=== PATIENT | male | born 1965 | race Asian ===

== ENCOUNTER 2016-08-28 01:58 | Inpatient (IN) | payer MEDICAID ==
[~2016-08-28] VITALS: Ht 170.2 cm; Wt 71.0 kg
[~2016-08-28 01:58] MED LIST: ASPI81TA2 PO; CARV3 PO; FURO40 PO; LISI2.5T2 PO; POTA-9 PO
[2016-08-28 02:55] LABS: BASOPHILS # (AUTO) 0.02 K/uL (0.00-0.20); BASOPHILS % (AUTO) 0.1 % (0.0-2.0); EOSINOPHILS % (AUTO) 0.03 % (1.0-6.0); HEMATOCRIT 42.8 % (41-53); HEMOGLOBIN 13.6 g/dL (13.5-17.5); LYMPHOCYTES # (AUTO) 0.6 K/uL (1.0-4.8); LYMPHOCYTES % (AUTO) 5.2 % (22.0-44.0); MEAN CORPUSCULAR HEMOGLOBIN 23.8 pg (26.0-34.0); MEAN CORPUSCULAR HGB CONC 31.8 G/dL (31.0-37.0); MEAN CORPUSCULAR VOLUME 75 fL (80-100); MONOCYTES # (AUTO) 0.9 K/uL (0.1-1.0); MONOCYTES % (AUTO) 7.7 % (2.0-9.0); NEUTROPHILS # (AUTO) 10.6 K/uL (1.8-7.7); PLATELET COUNT (AUTO) 214 K/uL (150-450); RED BLOOD CELL COUNT(AUTO) 5.71 MIL/uL (4.50-5.90); RED CELL DISTRIBUTION WIDTH 15.5 % (11.5-14.5); WHITE BLOOD COUNT (AUTO) 12.1 K/uL (4.5-11.0)
[2016-08-28 03:04] LABS: CALCIUM, TOTAL 9.4 mg/dL (8.8-10.5); CREATININE 3.81 mg/dL (0.60-1.30); POTASSIUM 4.1 mmol/L (3.5-5.1)
[2016-08-28 03:08] LABS: RBC MORPHOLOGY COMMENT ABNORMAL RBC MORPH
[2016-08-28 03:10] LABS: ALBUMIN 5.1 g/dL (3.4-5.0); BILIRUBIN,TOTAL 1.4 mg/dL (0.1-1.0); TOTAL PROTEIN, SERUM 8.9 g/dL (6.4-8.2)
[2016-08-28] MEDS ORDERED: SODIUM CHLORIDE 0.9% 500 ML IV ONE (03:30)
[2016-08-28] MEDS ORDERED: ASPIRIN 325 MG TABLET PO ONE (03:30)
[2016-08-28] MEDS ORDERED: ACETAMINOPHEN 325 MG TABLET PO PRN ×2 (03:30→10:00)
[2016-08-28] MEDS ORDERED: NITROGLYCERIN 2% (1 GM=INCH) PACKET TP ONE (03:30)
[2016-08-28] MEDS ORDERED: 0.9% SODIUM CHLORIDE 10 ML SYRINGE IVP PRN ×2 (03:30→10:00)
[2016-08-28] MEDS ORDERED: ONDANSETRON HCL 4 MG/2 ML VIAL IVP PRN ×2 (03:30→10:00)
[2016-08-28 08:15] LABS: APPEARANCE,URINE CLOUDY (CLEAR); GLUCOSE, URINE (UA) NEGATIVE (NEGATIVE); KETONES,URINE NEGATIVE (NEGATIVE); LEUKOCYTE ESTERASE ,URINE NEGATIVE (NEGATIVE); OCCULT BLOOD,URINE NEGATIVE (NEGATIVE); PROTEIN,URINE TRACE (NEGATIVE)
[2016-08-28 08:25] LABS: ADD UA MICROSCOPIC YES
[2016-08-28 08:33] VITALS: BP 105/60
[2016-08-28 08:51] LABS: CALCIUM OXALATE CRYSTALS,UR Few /LPF (None Seen); RBC,URINE 0-2 /HPF (0-2); WBC,URINE 0-2 /HPF (0-5)
[2016-08-28] MEDS ORDERED: MAGNESIUM HYDROXIDE SUSPENSION 30 ML UDCUP PO PRN (10:00)
[2016-08-28] MEDS ORDERED: OxyCODONE HCL/ACETAMINOPHEN 5-325 MG TABLET PO PRN (10:00)
[2016-08-28] MEDS ORDERED: POTASSIUM CHLORIDE 10 MEQ ER TABLET PO SCH (10:00)
[2016-08-28] MEDS: ASPIRIN 81 MG CHEWABLE TABLET PO SCH (10:00)
[2016-08-28 11:32] VITALS: BP 115/62
[2016-08-28] MEDS: CARVEDILOL 3.125 MG TABLET PO SCH ×2 (11:45→23:56)
[2016-08-28] MEDS: DOCUSATE SODIUM 100 MG CAPSULE PO SCH ×2 (11:45→23:55)
[2016-08-28 15:11] VITALS: BP 101/68
[2016-08-28] MEDS ORDERED: PNEUMOCOCCAL VACCINE POLYVALENT 0.5 ML VIAL [PPSV23] IM ONE (15:15)
[2016-08-28 19:54] VITALS: BP 117/68
[2016-08-28 23:59] VITALS: BP 100/54
[2016-08-29 03:03] LABS: APPEARANCE,URINE CLEAR (CLEAR); GLUCOSE, URINE (UA) NEGATIVE (NEGATIVE); KETONES,URINE NEGATIVE (NEGATIVE); LEUKOCYTE ESTERASE ,URINE NEGATIVE (NEGATIVE); OCCULT BLOOD,URINE NEGATIVE (NEGATIVE); PH,URINE 5.5 (5.0-8.0); PROTEIN,URINE NEGATIVE (NEGATIVE)
[2016-08-29 03:27] LABS: CALCIUM OXALATE CRYSTALS,UR Few /LPF (None Seen); RBC,URINE 0-2 /HPF (0-2); WBC,URINE 0-2 /HPF (0-5)
[2016-08-29 04:10] VITALS: BP 100/55
[2016-08-29 06:47] LABS: BASOPHILS % (AUTO) 0.3 % (0.0-2.0); EOSINOPHILS % (AUTO) 1.6 % (1.0-6.0); HEMATOCRIT 38.7 % (41-53); HEMOGLOBIN 12.2 g/dL (13.5-17.5); LYMPHOCYTES # (AUTO) 1.8 K/uL (1.0-4.8); LYMPHOCYTES % (AUTO) 19.5 % (22.0-44.0); MEAN CORPUSCULAR HEMOGLOBIN 23.7 pg (26.0-34.0); MEAN CORPUSCULAR HGB CONC 31.5 G/dL (31.0-37.0); MEAN CORPUSCULAR VOLUME 75 fL (80-100); MONOCYTES # (AUTO) 1.1 K/uL (0.1-1.0); MONOCYTES % (AUTO) 12.4 % (2.0-9.0); NEUTROPHILS # (AUTO) 6.1 K/uL (1.8-7.7); NEUTROPHILS % (AUTO) 66.2 % (40.0-70.0); PLATELET COUNT (AUTO) 189 K/uL (150-450); RED BLOOD CELL COUNT(AUTO) 5.15 MIL/uL (4.50-5.90); RED CELL DISTRIBUTION WIDTH 15.4 % (11.5-14.5); WHITE BLOOD COUNT (AUTO) 9.2 K/uL (4.5-11.0)
[2016-08-29 07:05] LABS: CALCIUM, TOTAL 8.6 mg/dL (8.8-10.5); CREATININE 1.35 mg/dL (0.60-1.30); MAGNESIUM 2.1 mg/dL (1.80-2.40); PHOSPHORUS 3.1 mg/dL (2.5-4.9); POTASSIUM 4.1 mmol/L (3.5-5.1)
[2016-08-29 07:16] VITALS: BP 103/57
[2016-08-29] MEDS: VITAMIN B COMP/VIT C/FOLIC ACID CAPSULE PO SCH (08:10)
[2016-08-29] MEDS: CARVEDILOL 3.125 MG TABLET PO SCH ×2 (08:10→20:40)
[2016-08-29] MEDS: DOCUSATE SODIUM 100 MG CAPSULE PO SCH ×2 (08:11→20:40)
[2016-08-29] MEDS: ASPIRIN 81 MG CHEWABLE TABLET PO SCH (08:11)
[2016-08-29] MEDS ORDERED: ASPIRIN 81 MG CHEWABLE TABLET PO SCH (09:00)
[2016-08-29 09:33] LABS: RBC MORPHOLOGY COMMENT ABNORMAL RBC MORPH
[2016-08-29] MEDS: PANTOPRAZOLE SODIUM 40 MG/VIAL IVP SCH (10:24)
[2016-08-29 11:11] VITALS: BP 103/56
[2016-08-29 15:57] VITALS: BP 112/64
[2016-08-29 19:43] VITALS: BP 101/60
[2016-08-29 23:41] VITALS: BP 100/57
[2016-08-30 04:30] VITALS: BP 108/63
[2016-08-30 07:17] LABS: ANION GAP 10 mmol/L (8-16); CALCIUM, TOTAL 8.7 mg/dL (8.8-10.5); CARBON DIOXIDE 26 mmol/L (22-29); CHLORIDE 100 mmol/L (98-107); CREATININE 1.05 mg/dL (0.60-1.30); GLOMERULAR FILTR. RATE CALC > 60 mL/min (>60); PHOSPHORUS 2.9 mg/dL (2.5-4.9); POTASSIUM 4.1 mmol/L (3.5-5.1); SODIUM SERUM 136 mmol/L (136-145); UREA NITROGEN, BLOOD 25 mg/dL (7-18)
[2016-08-30 07:39] VITALS: BP 110/64
[2016-08-30] MEDS: DOCUSATE SODIUM 100 MG CAPSULE PO SCH ×2 (08:11→20:12)
[2016-08-30] MEDS: PANTOPRAZOLE SODIUM 40 MG/VIAL IVP SCH (08:11)
[2016-08-30] MEDS: ASPIRIN 81 MG CHEWABLE TABLET PO SCH (08:12)
[2016-08-30] MEDS: VITAMIN B COMP/VIT C/FOLIC ACID CAPSULE PO SCH (08:13)
[2016-08-30] MEDS: OxyCODONE HCL/ACETAMINOPHEN 5-325 MG TABLET PO PRN (08:13)
[2016-08-30] MEDS: CARVEDILOL 3.125 MG TABLET PO SCH ×2 (08:46→20:12)
[2016-08-30 11:03] VITALS: BP 101/58
[2016-08-30 15:12] VITALS: BP 102/62
[2016-08-30 20:04] VITALS: BP 107/65
[2016-08-31] VITALS (19 sets, daily range): BP systolic 98–131; BP diastolic 50–81
[2016-08-31 07:13] LABS: ANION GAP 5 mmol/L (8-16); CALCIUM, TOTAL 8.4 mg/dL (8.8-10.5); CARBON DIOXIDE 30 mmol/L (22-29); CHLORIDE 101 mmol/L (98-107); CREATININE 1.03 mg/dL (0.60-1.30); GLOMERULAR FILTR. RATE CALC > 60 mL/min (>60); POTASSIUM 4.4 mmol/L (3.5-5.1); SODIUM SERUM 136 mmol/L (136-145); UREA NITROGEN, BLOOD 21 mg/dL (7-18)
[2016-08-31 07:16] LABS: BASOPHILS # (AUTO) 0.04 K/uL (0.00-0.20); BASOPHILS % (AUTO) 0.5 % (0.0-2.0); EOSINOPHILS % (AUTO) 2.64 % (1.0-6.0); HEMATOCRIT 37.5 % (41-53); HEMOGLOBIN 12.1 g/dL (13.5-17.5); LYMPHOCYTES # (AUTO) 1.4 K/uL (1.0-4.8); LYMPHOCYTES % (AUTO) 18.8 % (22.0-44.0); MEAN CORPUSCULAR HEMOGLOBIN 24.3 pg (26.0-34.0); MEAN CORPUSCULAR HGB CONC 32.2 G/dL (31.0-37.0); MEAN CORPUSCULAR VOLUME 75 fL (80-100); MONOCYTES # (AUTO) 0.9 K/uL (0.1-1.0); MONOCYTES % (AUTO) 12.2 % (2.0-9.0); NEUTROPHILS % (AUTO) 65.8 % (40.0-70.0); PLATELET COUNT (AUTO) 185 K/uL (150-450); RED BLOOD CELL COUNT(AUTO) 4.97 MIL/uL (4.50-5.90); RED CELL DISTRIBUTION WIDTH 15.2 % (11.5-14.5); WHITE BLOOD COUNT (AUTO) 7.5 K/uL (4.5-11.0)
[2016-08-31 07:28] LABS: INR 0.9 (0.9-1.1); PROTHROMBIN TIME 9.9 SEC (9.4-11.6)
[2016-08-31 08:20] LABS: RBC MORPHOLOGY COMMENT ABNORMAL RBC MORPH
[2016-08-31] MEDS: ASPIRIN 81 MG CHEWABLE TABLET PO SCH (08:57)
[2016-08-31] MEDS: VITAMIN B COMP/VIT C/FOLIC ACID CAPSULE PO SCH (08:58)
[2016-08-31] MEDS: CARVEDILOL 3.125 MG TABLET PO SCH ×2 (08:58→20:23)
[2016-08-31] MEDS: DOCUSATE SODIUM 100 MG CAPSULE PO SCH ×2 (08:58→20:23)
[2016-08-31] MEDS: PANTOPRAZOLE SODIUM 40 MG/VIAL IVP SCH (09:04)
[2016-08-31] MEDS ORDERED: PROPOFOL 1% 20 ML VIAL IVP ONE (12:00)
[2016-08-31] MEDS ORDERED: MIDAZOLAM HCL 2 MG/2 ML VIAL IVP ONE (12:00)
[2016-08-31] MEDS ORDERED: FentaNYL CITRATE-PF 100 MCG/2 ML VIAL IVP ONE (12:00)
[2016-08-31] MEDS ORDERED: KETAMINE HCL 50 MG/ML 10 ML VIAL IVP ONE (12:00)
[2016-08-31] MEDS ORDERED: SODIUM BICARBONATE 50 MEQ/50 ML VIAL ONE (13:00)
[2016-08-31] MEDS ORDERED: LIDOCAINE HCL/PF 1% 30 ML VIAL ONE ×2 (13:00→13:53)
[2016-08-31] MEDS ORDERED: IOHEXOL 300 MG/ML 50 ML VIAL ONE (13:18)
[2016-08-31] MEDS ORDERED: 0.9% SODIUM CHLORIDE 10 ML SYRINGE IVP ONE (13:24)
[2016-08-31] MEDS ORDERED: BUPIVACAINE LIPOSOME/PF 1.3%-13.3MG/ML SUSPENSION 10 ML VIAL INJ ONE (13:30)
[2016-08-31] MEDS ORDERED: LIDOCAINE 1% 30 ML/SOD BICARB 8.4% 4 ML SQ ONE (13:48)
[2016-08-31] MEDS ORDERED: LIDOCAINE HCL/PF 1% 30 ML VIAL INJ ONE (13:48)
[2016-08-31] MEDS ORDERED: LIDOCAINE HCL 1% 20 ML VIAL INJ ONE (13:48)
[2016-08-31] MEDS ORDERED: ACETAMINOPHEN 325 MG TABLET PO PRN (14:45)
[2016-08-31] MEDS ORDERED: HYDROmorphone 2 MG/ML SYRINGE IVP PRN (15:00)
[2016-08-31] MEDS ORDERED: MEPERIDINE-PF 25 MG/ML SYRINGE IVP PRN (15:00)
[2016-08-31] MEDS ORDERED: FentaNYL CITRATE-PF 100 MCG/2 ML VIAL IVP PRN (15:00)
[2016-08-31] MEDS ORDERED: BUPIVACAINE HCL/PF 0.25% 30 ML VIAL INJ ONE (16:48)
[2016-08-31] MEDS ORDERED: SODIUM CHLORIDE 0.9% 250 ML IV ONE (20:05)
[2016-08-31] MEDS: OXYGEN THERAPY IH SCH (20:23)
[2016-08-31] MEDS: CeFAZolin 1 GM/DEXTROSE 50 ML IV SCH (20:24)
[2016-09-01 00:08] VITALS: BP 112/72
[2016-09-01] MEDS: CeFAZolin 1 GM/DEXTROSE 50 ML IV SCH ×2 (01:46→08:18)
[2016-09-01 04:12] VITALS: BP 127/81
[2016-09-01] MEDS: OxyCODONE HCL/ACETAMINOPHEN 5-325 MG TABLET PO PRN ×3 (04:23→12:36)
[2016-09-01 04:27] VITALS: BP 127/75
[2016-09-01 06:40] LABS: ANION GAP 9 mmol/L (8-16); CALCIUM, TOTAL 8.2 mg/dL (8.8-10.5); CARBON DIOXIDE 27 mmol/L (22-29); CHLORIDE 100 mmol/L (98-107); CREATININE 1.13 mg/dL (0.60-1.30); GLOMERULAR FILTR. RATE CALC > 60 mL/min (>60); PHOSPHORUS 2.9 mg/dL (2.5-4.9); POTASSIUM 4.1 mmol/L (3.5-5.1); SODIUM SERUM 136 mmol/L (136-145); UREA NITROGEN, BLOOD 20 mg/dL (7-18)
[2016-09-01 06:42] LABS: BASOPHILS % (AUTO) 0.5 % (0.0-2.0); EOSINOPHILS % (AUTO) 3.2 % (1.0-6.0); HEMATOCRIT 37.3 % (41-53); HEMOGLOBIN 11.8 g/dL (13.5-17.5); LYMPHOCYTES # (AUTO) 1.4 K/uL (1.0-4.8); LYMPHOCYTES % (AUTO) 20.7 % (22.0-44.0); MEAN CORPUSCULAR HEMOGLOBIN 23.6 pg (26.0-34.0); MEAN CORPUSCULAR HGB CONC 31.7 G/dL (31.0-37.0); MEAN CORPUSCULAR VOLUME 74 fL (80-100); MONOCYTES # (AUTO) 0.9 K/uL (0.1-1.0); NEUTROPHILS # (AUTO) 4.2 K/uL (1.8-7.7); NEUTROPHILS % (AUTO) 62.6 % (40.0-70.0); PLATELET COUNT (AUTO) 178 K/uL (150-450); RED BLOOD CELL COUNT(AUTO) 5.01 MIL/uL (4.50-5.90); RED CELL DISTRIBUTION WIDTH 14.8 % (11.5-14.5); WHITE BLOOD COUNT (AUTO) 6.7 K/uL (4.5-11.0)
[2016-09-01 06:43] LABS: RBC MORPHOLOGY COMMENT ABNORMAL RBC MORPH
[2016-09-01 07:20] VITALS: BP 128/78
[2016-09-01] MEDS: OXYGEN THERAPY IH SCH (08:00)
[2016-09-01] MEDS: PANTOPRAZOLE SODIUM 40 MG/VIAL IVP SCH (08:18)
[2016-09-01] MEDS: DOCUSATE SODIUM 100 MG CAPSULE PO SCH (08:19)
[2016-09-01] MEDS: VITAMIN B COMP/VIT C/FOLIC ACID CAPSULE PO SCH (08:19)
[2016-09-01] MEDS: ASPIRIN 81 MG CHEWABLE TABLET PO SCH (08:19)
[2016-09-01] MEDS: CARVEDILOL 3.125 MG TABLET PO SCH (08:19)
[2016-09-01 11:05] VITALS: BP 110/71
== END 2016-09-01 15:10 | disposition home or self-care (01) | DRG 176 ==
LOC: EMS 01:59 → 5N 05:51
PROVIDERS: ADMIT Internal Medicine; ATTEND Internal Medicine
PROC: 3E0234Z Introduction of Serum, Toxoid and Vaccine into Muscle, Percutaneous Approach (ICD-10-PCS; 2016-08-30)
PROC: 0JH608Z Insertion of Defibrillator Generator into Chest Subcutaneous Tissue and Fascia, Open Approach (ICD-10-PCS; principal; 2016-08-31)
PROC: 0JH60PZ Insertion of Cardiac Rhythm Related Device into Chest Subcutaneous Tissue and Fascia, Open Approach (ICD-10-PCS; 2016-08-31)
DX: I42.9 Cardiomyopathy, unspecified (principal); N17.0 Acute kidney failure with tubular necrosis; I47.2 Ventricular tachycardia; I50.23 Acute on chronic systolic (congestive) heart failure; N18.5 Chronic kidney disease, stage 5; I13.2 Hypertensive heart and chronic kidney disease with heart failure and with stage 5 chronic kidney disease, or end stage renal disease; N17.9 Acute kidney failure, unspecified; R91.8 Other nonspecific abnormal finding of lung field; K76.9 Liver disease, unspecified; F15.10 Other stimulant abuse, uncomplicated; D64.9 Anemia, unspecified; F19.10 Other psychoactive substance abuse, uncomplicated; R07.89 Other chest pain; J44.9 Chronic obstructive pulmonary disease, unspecified; I25.10 Atherosclerotic heart disease of native coronary artery without angina pectoris; Z79.899 Other long term (current) drug therapy; Z87.01 Personal history of pneumonia (recurrent); Z87.891 Personal history of nicotine dependence; Z79.82 Long term (current) use of aspirin; Z87.898 Personal history of other specified conditions; Z71.51 Drug abuse counseling and surveillance of drug abuser; Z23 Encounter for immunization
CPT/HCPCS: 33249; 71020; 76000; 76770; 80307; 82570; 83735; 84100; 84300; 84540; 87081; 87086; 90471; 93005; 93306; 96360; 99285; C9113; J0690; J2250; J2704; J3010; J3490; J7040; J7050; Q9967

== ENCOUNTER 2017-05-28 18:17 | Emergency (ER) | payer MEDICAID, OTHER ==
[~2017-05-28] VITALS: Ht 170.2 cm; Wt 72.7 kg
[~2017-05-28 18:17] MED LIST changes: -ASPI81TA2 PO; +ASPI81TA39 PO; -FURO40 PO; -LISI2.5T2 PO; -POTA-9 PO
[2017-05-28 21:46] LABS: BASOPHILS % (AUTO) 1.3 % (0.0-2.0); EOSINOPHILS % (AUTO) 5.9 % (1.0-6.0); HEMATOCRIT 39.3 % (41-53); HEMOGLOBIN 12.8 g/dL (13.5-17.5); LYMPHOCYTES # (AUTO) 1.8 K/uL (1.0-4.8); LYMPHOCYTES % (AUTO) 27.1 % (22.0-44.0); MEAN CORPUSCULAR HEMOGLOBIN 24.3 pg (26.0-34.0); MEAN CORPUSCULAR HGB CONC 32.7 G/dL (31.0-37.0); MEAN CORPUSCULAR VOLUME 74 fL (80-100); MONOCYTES # (AUTO) 0.8 K/uL (0.1-1.0); MONOCYTES % (AUTO) 12.3 % (2.0-9.0); NEUTROPHILS # (AUTO) 3.6 K/uL (1.8-7.7); NEUTROPHILS % (AUTO) 53.4 % (40.0-70.0); PLATELET COUNT (AUTO) 236 K/uL (150-450); RED BLOOD CELL COUNT(AUTO) 5.28 MIL/uL (4.50-5.90); RED CELL DISTRIBUTION WIDTH 14.9 % (11.5-14.5)
[2017-05-28 22:04] LABS: CALCIUM, TOTAL 8.5 mg/dL (8.8-10.5); CREATININE 1.41 mg/dL (0.60-1.30); POTASSIUM 4.2 mmol/L (3.5-5.1)
[2017-05-28 22:10] LABS: ALBUMIN 3.5 g/dL (3.4-5.0); BILIRUBIN,TOTAL 0.6 mg/dL (0.1-1.0)
[2017-05-28] MEDS ORDERED: FUROSEMIDE 40 MG/4 ML VIAL IVP ONE (23:15)
[2017-05-29 00:52] VITALS: BP 109/79
== END 2017-05-29 00:54 | disposition home or self-care (01) ==
LOC: EMS 18:19
DX: I11.0 Hypertensive heart disease with heart failure (principal); I50.9 Heart failure, unspecified; Z87.891 Personal history of nicotine dependence
CPT/HCPCS: 36415; 71045; 80053; 83880; 84484; 85025; 93005; 96374; 99285; J1940

== ENCOUNTER 2018-01-10 20:18 | Emergency (ER) | payer OTHER ==
[~2018-01-10] VITALS: Ht 172.7 cm; Wt 70.5 kg
[~2018-01-10 20:18] MED LIST changes: +APIX5TAB PO; -ASPI81TA39 PO; +AUD NEB; +FURO-152 PO; +IPRNEB IH; +LEVO500T2 PO; +LISI10TA PO; +POTA-9 PO; +PRED10TA3 PO; +PRED20TA3 PO; +PRED5TAB PO
[2018-01-10] MEDS ORDERED: IPRATROPIUM BROMIDE 0.5 MG/2.5 ML NEB SOLUTION NEB ONE (20:45)
[2018-01-10] MEDS ORDERED: ALBUTEROL SULFATE 2.5 MG/0.5 ML NEB SOLUTION NEB ONE (20:45)
[2018-01-10 20:53] LABS: BASOPHILS % (AUTO) 1.2 % (0.0-2.0); HEMATOCRIT 38.9 % (41-53); HEMOGLOBIN 12.5 g/dL (13.5-17.5); LYMPHOCYTES # (AUTO) 1.4 K/uL (1.0-4.8); MEAN CORPUSCULAR HEMOGLOBIN 23.9 pg (26.0-34.0); MEAN CORPUSCULAR HGB CONC 32.2 G/dL (31.0-37.0); MEAN CORPUSCULAR VOLUME 74 fL (80-100); MONOCYTES # (AUTO) 0.6 K/uL (0.1-1.0); MONOCYTES % (AUTO) 10.7 % (2.0-9.0); NEUTROPHILS # (AUTO) 2.8 K/uL (1.8-7.7); NEUTROPHILS % (AUTO) 53.1 % (40.0-70.0); PLATELET COUNT (AUTO) 209 K/uL (150-450); RED BLOOD CELL COUNT(AUTO) 5.25 MIL/uL (4.50-5.90); RED CELL DISTRIBUTION WIDTH 15.3 % (11.5-14.5)
[2018-01-10 21:03] LABS: CREATININE 1.58 mg/dL (0.60-1.30); POTASSIUM 4.3 mmol/L (3.5-5.1)
[2018-01-10] MEDS ORDERED: 0.9% SODIUM CHLORIDE 5 ML NEB SOLUTION NEB ONE (21:06)
[2018-01-10 21:09] LABS: ALBUMIN 3.4 g/dL (3.4-5.0); BILIRUBIN,TOTAL 0.7 mg/dL (0.1-1.0); TOTAL PROTEIN, SERUM 6.8 g/dL (6.4-8.2)
[2018-01-10 21:40] LABS: PLATELET MORPHOLOGY COMMENT LARGE PLTS PRESENT
[2018-01-10] MEDS ORDERED: MethylPREDNISolone SOD SUCC 125 MG/2 ML VIAL IM ONE (22:00)
[2018-01-10] MEDS ORDERED: FUROSEMIDE 20 MG TABLET PO ONE (22:15)
[2018-01-10 23:07] VITALS: BP 119/69
== END 2018-01-10 23:11 | disposition home or self-care (01) ==
LOC: EMS 20:19
DX: I11.0 Hypertensive heart disease with heart failure (principal); I50.9 Heart failure, unspecified; J44.9 Chronic obstructive pulmonary disease, unspecified; D64.9 Anemia, unspecified; Z87.891 Personal history of nicotine dependence; Z95.0 Presence of cardiac pacemaker; Z79.01 Long term (current) use of anticoagulants; Z79.2 Long term (current) use of antibiotics; Z79.899 Other long term (current) drug therapy
CPT/HCPCS: 36415; 71045; 80053; 83880; 84484; 85025; 93005; 94640; 96372; 99285; J2930; J7613

== ENCOUNTER 2018-04-18 00:56 | Emergency (ER) | payer OTHER ==
[~2018-04-18] VITALS: Ht 172.7 cm; Wt 72.7 kg
[2018-04-18 01:36] LABS: BASOPHILS % (AUTO) 1.1 % (0.0-2.0); EOSINOPHILS % (AUTO) 6.7 % (1.0-6.0); HEMATOCRIT 39.9 % (41-53); HEMOGLOBIN 12.7 g/dL (13.5-17.5); LYMPHOCYTES # (AUTO) 1.5 K/uL (1.0-4.8); LYMPHOCYTES % (AUTO) 26.9 % (22.0-44.0); MEAN CORPUSCULAR HEMOGLOBIN 24.5 pg (26.0-34.0); MEAN CORPUSCULAR HGB CONC 31.8 G/dL (31.0-37.0); MEAN CORPUSCULAR VOLUME 77 fL (80-100); MONOCYTES # (AUTO) 0.7 K/uL (0.1-1.0); MONOCYTES % (AUTO) 11.9 % (2.0-9.0); NEUTROPHILS % (AUTO) 53.4 % (40.0-70.0); PLATELET COUNT (AUTO) 205 K/uL (150-450); RED BLOOD CELL COUNT(AUTO) 5.18 MIL/uL (4.50-5.90); RED CELL DISTRIBUTION WIDTH 16.9 % (11.5-14.5)
[2018-04-18 01:43] LABS: ANION GAP 7 mmol/L (8-16); CALCIUM, TOTAL 8.3 mg/dL (8.8-10.5); CARBON DIOXIDE 30 mmol/L (22-29); CHLORIDE 107 mmol/L (98-107); GLOMERULAR FILTR. RATE CALC > 60 mL/min (>60); GLUCOSE,RANDOM 99 mg/dL (70-110); POTASSIUM 4.6 mmol/L (3.5-5.1); SODIUM SERUM 144 mmol/L (136-145); UREA NITROGEN, BLOOD 18 mg/dL (7-18)
[2018-04-18 01:49] LABS: ALANINE AMINOTRANSFERASE 51 U/L (12-78); ALBUMIN 3.1 g/dL (3.4-5.0); ALKALINE PHOSPHATASE 83 U/L (46-116); ASPARTATE AMINOTRANSFERASE 37 U/L (15-37); BILIRUBIN,TOTAL 0.7 mg/dL (0.1-1.0); TOTAL PROTEIN, SERUM 6.3 g/dL (6.4-8.2)
[2018-04-18 02:06] LABS: B-TYPE NATRIURETIC PEPTIDE 663 pg/mL (0-100)
[2018-04-18] MEDS ORDERED: FUROSEMIDE 40 MG/4 ML VIAL IVP ONE (02:45)
[2018-04-18] MEDS ORDERED: IPRATROPIUM BROMIDE 0.5 MG/2.5 ML NEB SOLUTION NEB ONE (03:45)
[2018-04-18] MEDS ORDERED: ALBUTEROL SULFATE 2.5 MG/0.5 ML NEB SOLUTION NEB ONE (03:45)
[2018-04-18 04:29] LABS: PROTHROMBIN TIME 10.7 SEC (9.4-11.6)
[2018-04-18 04:30] LABS: AMPHET/METH SCREEN,URINE NEGATIVE (NEGATIVE); BARBITURATE SCREEN, URINE NEGATIVE (NEGATIVE); BENZODIAZEPINES SCREEN,URINE NEGATIVE (NEGATIVE); CANNABINOID SCREEN,URINE NEGATIVE (NEGATIVE); COCAINE SCREEN,URINE NEGATIVE (NEGATIVE); METHADONE SCREEN, URINE NEGATIVE (NEGATIVE); OPIATE SCREEN,URINE NEGATIVE (NEGATIVE); PHENCYCLIDINE SCREEN,URINE NEGATIVE (NEGATIVE)
[2018-04-18 04:54] VITALS: BP 115/79
== END 2018-04-18 05:17 | disposition home or self-care (01) ==
LOC: EMS 00:57
DX: I11.0 Hypertensive heart disease with heart failure (principal); I50.9 Heart failure, unspecified; J98.01 Acute bronchospasm; J44.9 Chronic obstructive pulmonary disease, unspecified; F19.90 Other psychoactive substance use, unspecified, uncomplicated; Z87.891 Personal history of nicotine dependence; Z95.0 Presence of cardiac pacemaker; Z79.899 Other long term (current) drug therapy
CPT/HCPCS: 36415; 71045; 80053; 80307; 83880; 84484; 85025; 85610; 85730; 93005; 94640; 96374; 99284; J1940

== ENCOUNTER 2018-05-08 18:43 | Emergency (ER) | payer OTHER ==
[~2018-05-08] VITALS: Ht 172.7 cm; Wt 68.2 kg
[2018-05-08 20:02] LABS: BASOPHILS % (AUTO) 0.7 % (0.0-2.0); HEMATOCRIT 42.9 % (41-53); HEMOGLOBIN 13.7 g/dL (13.5-17.5); LYMPHOCYTES % (AUTO) 14.2 % (22.0-44.0); MEAN CORPUSCULAR HEMOGLOBIN 24.6 pg (26.0-34.0); MEAN CORPUSCULAR VOLUME 77 fL (80-100); MONOCYTES # (AUTO) 1.1 K/uL (0.1-1.0); MONOCYTES % (AUTO) 14.8 % (2.0-9.0); NEUTROPHILS # (AUTO) 4.7 K/uL (1.8-7.7); NEUTROPHILS % (AUTO) 64.3 % (40.0-70.0); PLATELET COUNT (AUTO) 209 K/uL (150-450); RED BLOOD CELL COUNT(AUTO) 5.59 MIL/uL (4.50-5.90); RED CELL DISTRIBUTION WIDTH 16.9 % (11.5-14.5)
[2018-05-08 20:14] LABS: ANION GAP 9 mmol/L (8-16); CALCIUM, TOTAL 8.4 mg/dL (8.8-10.5); CARBON DIOXIDE 24 mmol/L (22-29); CHLORIDE 106 mmol/L (98-107); CREATININE 1.07 mg/dL (0.60-1.30); GLOMERULAR FILTR. RATE CALC > 60 mL/min (>60); GLUCOSE,RANDOM 89 mg/dL (70-110); POTASSIUM 3.6 mmol/L (3.5-5.1); SODIUM SERUM 139 mmol/L (136-145); UREA NITROGEN, BLOOD 14 mg/dL (7-18)
[2018-05-08 20:41] LABS: INR 1.1 (0.9-1.1); PROTHROMBIN TIME 11.8 SEC (9.4-11.6)
[2018-05-08 20:42] LABS: B-TYPE NATRIURETIC PEPTIDE 994 pg/mL (0-100)
[2018-05-08 20:44] LABS: ALANINE AMINOTRANSFERASE 708 U/L (12-78); ALBUMIN 2.8 g/dL (3.4-5.0); ALKALINE PHOSPHATASE 118 U/L (46-116); ASPARTATE AMINOTRANSFERASE 299 U/L (15-37); BILIRUBIN,TOTAL 0.9 mg/dL (0.1-1.0); CREATINE KINASE, TOTAL ONLY 142 U/L (39-308); TOTAL PROTEIN, SERUM 5.8 g/dL (6.4-8.2)
[2018-05-08] MEDS ORDERED: IPRATROPIUM BROMIDE 0.5 MG/2.5 ML NEB SOLUTION NEB ONE (21:00)
[2018-05-08] MEDS ORDERED: MethylPREDNISolone SOD SUCC 125 MG/2 ML VIAL IVP ONE (21:00)
[2018-05-08] MEDS ORDERED: FUROSEMIDE 40 MG/4 ML VIAL IVP ONE (21:00)
[2018-05-08] MEDS ORDERED: ALBUTEROL SULFATE 5 MG/ML 20 ML NEB SOLN [BULK] NEB ONE (21:00)
[2018-05-08] MEDS ORDERED: 0.9% SODIUM CHLORIDE 5 ML NEB SOLUTION NEB ONE (21:10)
[2018-05-08 23:22] VITALS: BP 144/85
== END 2018-05-08 23:44 | disposition home or self-care (01) ==
LOC: EMS 18:45
DX: J44.9 Chronic obstructive pulmonary disease, unspecified (principal); K70.10 Alcoholic hepatitis without ascites; I11.0 Hypertensive heart disease with heart failure; I50.9 Heart failure, unspecified; F15.10 Other stimulant abuse, uncomplicated; F10.10 Alcohol abuse, uncomplicated; Z95.0 Presence of cardiac pacemaker; Z79.899 Other long term (current) drug therapy; Z87.891 Personal history of nicotine dependence
CPT/HCPCS: 36415; 71045; 80053; 82550; 83880; 84484; 85025; 85610; 85730; 93005; 94644; 96374; 96375; 99285; J1940; J2930

== ENCOUNTER 2018-05-21 09:45 | Inpatient (IN) | payer OTHER ==
[~2018-05-21] VITALS: Ht 170.2 cm; Wt 73.7 kg
[2018-05-21 10:44] LABS: BASOPHILS % (AUTO) 1.3 % (0.0-2.0); EOSINOPHILS % (AUTO) 2.8 % (1.0-6.0); HEMATOCRIT 41.7 % (41-53); HEMOGLOBIN 13.6 g/dL (13.5-17.5); LYMPHOCYTES # (AUTO) 1.4 K/uL (1.0-4.8); LYMPHOCYTES % (AUTO) 21.5 % (22.0-44.0); MEAN CORPUSCULAR HEMOGLOBIN 25.1 pg (26.0-34.0); MEAN CORPUSCULAR HGB CONC 32.6 G/dL (31.0-37.0); MEAN CORPUSCULAR VOLUME 77 fL (80-100); MONOCYTES # (AUTO) 0.6 K/uL (0.1-1.0); MONOCYTES % (AUTO) 8.7 % (2.0-9.0); NEUTROPHILS # (AUTO) 4.3 K/uL (1.8-7.7); NEUTROPHILS % (AUTO) 65.7 % (40.0-70.0); PLATELET COUNT (AUTO) 212 K/uL (150-450); RED BLOOD CELL COUNT(AUTO) 5.42 MIL/uL (4.50-5.90); RED CELL DISTRIBUTION WIDTH 16.5 % (11.5-14.5)
[2018-05-21 10:47] LABS: CALCIUM, TOTAL 8.9 mg/dL (8.8-10.5); CREATININE 1.32 mg/dL (0.60-1.30); INR 1.1 (0.9-1.1); PROTHROMBIN TIME 11.4 SEC (9.4-11.6)
[2018-05-21 11:10] LABS: BILIRUBIN,TOTAL 1.1 mg/dL (0.1-1.0); TOTAL PROTEIN, SERUM 6.2 g/dL (6.4-8.2)
[2018-05-21 11:34] LABS: APPEARANCE,URINE CLEAR (CLEAR); BILIRUBIN,URINE NEGATIVE (NEGATIVE); GLUCOSE, URINE (UA) NEGATIVE (NEGATIVE); KETONES,URINE NEGATIVE (NEGATIVE); LEUKOCYTE ESTERASE ,URINE NEGATIVE (NEGATIVE); NITRATE,URINE NEGATIVE (NEGATIVE); OCCULT BLOOD,URINE NEGATIVE (NEGATIVE)
[2018-05-21] MEDS ORDERED: FUROSEMIDE 40 MG/4 ML VIAL IVP ONE (11:45)
[2018-05-21] MEDS ORDERED: NITROGLYCERIN 2% (1 GM=INCH) PACKET TP ONE (11:45)
[2018-05-21] MEDS ORDERED: ASPIRIN 325 MG EC TABLET PO ONE (11:45)
[2018-05-21 12:02] LABS: PROTEIN,URINE NEGATIVE (NEGATIVE)
[2018-05-21 12:05] LABS: AMPHET/METH SCREEN,URINE POSITIVE (NEGATIVE); BARBITURATE SCREEN, URINE NEGATIVE (NEGATIVE); BENZODIAZEPINES SCREEN,URINE NEGATIVE (NEGATIVE); CANNABINOID SCREEN,URINE NEGATIVE (NEGATIVE); COCAINE SCREEN,URINE NEGATIVE (NEGATIVE); METHADONE SCREEN, URINE NEGATIVE (NEGATIVE); OPIATE SCREEN,URINE NEGATIVE (NEGATIVE); PHENCYCLIDINE SCREEN,URINE NEGATIVE (NEGATIVE)
[2018-05-21] MEDS ORDERED: ACETAMINOPHEN 325 MG TABLET PO PRN ×2 (13:45→20:45)
[2018-05-21] MEDS ORDERED: 0.9% SODIUM CHLORIDE 10 ML SYRINGE IVP PRN (13:45)
[2018-05-21 19:10] VITALS: BP 110/74
[2018-05-21 19:35] VITALS: BP 121/90
[2018-05-21] MEDS ORDERED: ONDANSETRON HCL 4 MG/2 ML VIAL IVP PRN (20:45)
[2018-05-21] MEDS: POTASSIUM CHLORIDE 10% 40 MEQ/30 ML LIQUID UDCUP PO SCH (22:08)
[2018-05-21] MEDS: ENOXAPARIN SODIUM 40 MG/0.4 ML PF SYRINGE SQ SCH (22:09)
[2018-05-21] MEDS: FUROSEMIDE 40 MG/4 ML VIAL IVP SCH (22:10)
[2018-05-21 22:34] LABS: BASOPHILS % (AUTO) 0.8 % (0.0-2.0); HEMATOCRIT 40.1 % (41-53); LYMPHOCYTES # (AUTO) 1.9 K/uL (1.0-4.8); LYMPHOCYTES % (AUTO) 29.4 % (22.0-44.0); MEAN CORPUSCULAR HEMOGLOBIN 24.8 pg (26.0-34.0); MEAN CORPUSCULAR HGB CONC 32.5 G/dL (31.0-37.0); MEAN CORPUSCULAR VOLUME 76 fL (80-100); MONOCYTES # (AUTO) 0.8 K/uL (0.1-1.0); MONOCYTES % (AUTO) 11.6 % (2.0-9.0); NEUTROPHILS # (AUTO) 3.6 K/uL (1.8-7.7); NEUTROPHILS % (AUTO) 56.2 % (40.0-70.0); PLATELET COUNT (AUTO) 219 K/uL (150-450); RED BLOOD CELL COUNT(AUTO) 5.25 MIL/uL (4.50-5.90); RED CELL DISTRIBUTION WIDTH 16.2 % (11.5-14.5)
[2018-05-21 22:43] LABS: INR 1.1 (0.9-1.1); PROTHROMBIN TIME 11.7 SEC (9.4-11.6)
[2018-05-21 22:52] LABS: PLATELET MORPHOLOGY COMMENT NORMAL
[2018-05-21 23:12] LABS: ALBUMIN 2.7 g/dL (3.4-5.0); BILIRUBIN,TOTAL 1.1 mg/dL (0.1-1.0); CALCIUM, TOTAL 8.5 mg/dL (8.8-10.5); CREATININE 1.53 mg/dL (0.60-1.30); POTASSIUM 3.9 mmol/L (3.5-5.1); TOTAL PROTEIN, SERUM 5.7 g/dL (6.4-8.2)
[2018-05-21 23:42] VITALS: BP 122/79
[2018-05-22] MEDS: ALBUTEROL SULFATE 2.5 MG/0.5 ML NEB SOLUTION NEB SCH ×4 (02:09→20:04)
[2018-05-22] MEDS: IPRATROPIUM BROMIDE 0.5 MG/2.5 ML NEB SOLUTION NEB SCH ×4 (02:09→20:04)
[2018-05-22 04:57] VITALS: BP 112/72
[2018-05-22 07:46] LABS: BASOPHILS % (AUTO) 1.1 % (0.0-2.0); EOSINOPHILS % (AUTO) 2.6 % (1.0-6.0); HEMATOCRIT 40.3 % (41-53); LYMPHOCYTES # (AUTO) 1.9 K/uL (1.0-4.8); LYMPHOCYTES % (AUTO) 30.9 % (22.0-44.0); MEAN CORPUSCULAR HEMOGLOBIN 24.6 pg (26.0-34.0); MEAN CORPUSCULAR HGB CONC 32.2 G/dL (31.0-37.0); MEAN CORPUSCULAR VOLUME 77 fL (80-100); MONOCYTES # (AUTO) 0.6 K/uL (0.1-1.0); MONOCYTES % (AUTO) 9.3 % (2.0-9.0); NEUTROPHILS # (AUTO) 3.5 K/uL (1.8-7.7); NEUTROPHILS % (AUTO) 56.1 % (40.0-70.0); PLATELET COUNT (AUTO) 224 K/uL (150-450); RED BLOOD CELL COUNT(AUTO) 5.27 MIL/uL (4.50-5.90); RED CELL DISTRIBUTION WIDTH 16.1 % (11.5-14.5)
[2018-05-22 07:52] LABS: ALBUMIN 2.7 g/dL (3.4-5.0); CALCIUM, TOTAL 8.3 mg/dL (8.8-10.5); CREATININE 1.6 mg/dL (0.60-1.30); POTASSIUM 3.6 mmol/L (3.5-5.1); TOTAL PROTEIN, SERUM 5.6 g/dL (6.4-8.2)
[2018-05-22 08:27] VITALS: BP 113/80
[2018-05-22] MEDS: POTASSIUM CHLORIDE 10% 40 MEQ/30 ML LIQUID UDCUP PO SCH (08:56)
[2018-05-22] MEDS: ENOXAPARIN SODIUM 40 MG/0.4 ML PF SYRINGE SQ SCH (08:56)
[2018-05-22] MEDS: FUROSEMIDE 40 MG/4 ML VIAL IVP SCH ×2 (08:56→21:33)
[2018-05-22 11:15] VITALS: BP 125/80
[2018-05-22 16:39] VITALS: BP 109/73
[2018-05-22 19:40] VITALS: BP 110/77
[2018-05-23 00:01] VITALS: BP 112/72
[2018-05-23] MEDS: ALBUTEROL SULFATE 2.5 MG/0.5 ML NEB SOLUTION NEB SCH ×3 (02:14→14:00)
[2018-05-23] MEDS: IPRATROPIUM BROMIDE 0.5 MG/2.5 ML NEB SOLUTION NEB SCH ×3 (02:14→14:00)
[2018-05-23 05:05] VITALS: BP 102/75
[2018-05-23 07:18] VITALS: BP 112/73
[2018-05-23] MEDS: POTASSIUM CHLORIDE 10% 40 MEQ/30 ML LIQUID UDCUP PO SCH (08:13)
[2018-05-23] MEDS: FUROSEMIDE 40 MG/4 ML VIAL IVP SCH (08:13)
[2018-05-23] MEDS: ENOXAPARIN SODIUM 40 MG/0.4 ML PF SYRINGE SQ SCH (08:14)
[2018-05-23 10:55] VITALS: BP 114/71
[2018-05-23] MEDS ORDERED: FURO40 PO (11:25)
[2018-05-23] MEDS ORDERED: KDUR20 PO (11:26)
[2018-05-23] MEDS ORDERED: IPRAHFA IH (11:27)
== END 2018-05-23 14:20 | disposition home or self-care (01) | DRG 194 ==
LOC: EMS 09:46 → 5S 17:03 → 5N 18:39
PROVIDERS: ADMIT Internal Medicine; ATTEND Internal Medicine
PROC: 3E0234Z Introduction of Serum, Toxoid and Vaccine into Muscle, Percutaneous Approach (ICD-10-PCS; principal; 2018-05-23)
DX: I11.0 Hypertensive heart disease with heart failure (principal); N17.9 Acute kidney failure, unspecified; J81.1 Chronic pulmonary edema; I45.81 Long QT syndrome; I50.23 Acute on chronic systolic (congestive) heart failure; I42.9 Cardiomyopathy, unspecified; F15.10 Other stimulant abuse, uncomplicated; F17.200 Nicotine dependence, unspecified, uncomplicated; J44.9 Chronic obstructive pulmonary disease, unspecified; T50.2X5A Adverse effect of carbonic-anhydrase inhibitors, benzothiadiazides and other diuretics, initial encounter; Z23 Encounter for immunization; Z95.810 Presence of automatic (implantable) cardiac defibrillator; Y92.89 Other specified places as the place of occurrence of the external cause; Z87.01 Personal history of pneumonia (recurrent)
CPT/HCPCS: 90686; 93005; 94640; 96374; G0378; G0480; J1650; J1940

== ENCOUNTER 2018-05-24 14:37 | Emergency (ER) | payer OTHER ==
[~2018-05-24] VITALS: Ht 165.1 cm; Wt 63.6 kg
[~2018-05-24 14:37] MED LIST changes: -APIX5TAB PO; -AUD NEB; -CARV3 PO; -FURO-152 PO; +FURO40 PO; +IPRAHFA IH; -IPRNEB IH; +KDUR20 PO; -LEVO500T2 PO; -LISI10TA PO; -POTA-9 PO; -PRED10TA3 PO; -PRED20TA3 PO; -PRED5TAB PO
[2018-05-24 15:40] LABS: BASOPHILS % (AUTO) 2.2 % (0.0-2.0); EOSINOPHILS % (AUTO) 2.3 % (1.0-6.0); HEMOGLOBIN 15.6 g/dL (13.5-17.5); LYMPHOCYTES # (AUTO) 1.2 K/uL (1.0-4.8); MEAN CORPUSCULAR HGB CONC 32.5 G/dL (31.0-37.0); MEAN CORPUSCULAR VOLUME 77 fL (80-100); MONOCYTES # (AUTO) 0.7 K/uL (0.1-1.0); MONOCYTES % (AUTO) 10.9 % (2.0-9.0); NEUTROPHILS # (AUTO) 4.1 K/uL (1.8-7.7); NEUTROPHILS % (AUTO) 65.6 % (40.0-70.0); PLATELET COUNT (AUTO) 242 K/uL (150-450); RED BLOOD CELL COUNT(AUTO) 6.25 MIL/uL (4.50-5.90)
[2018-05-24 16:04] LABS: CALCIUM, TOTAL 9.2 mg/dL (8.8-10.5); CREATININE 1.27 mg/dL (0.60-1.30); POTASSIUM 4.6 mmol/L (3.5-5.1)
[2018-05-24 16:12] LABS: PROTHROMBIN TIME 10.2 SEC (9.4-11.6)
[2018-05-24 16:12] LABS: APPEARANCE,URINE CLEAR (CLEAR); BILIRUBIN,URINE NEGATIVE (NEGATIVE); GLUCOSE, URINE (UA) NEGATIVE (NEGATIVE); KETONES,URINE NEGATIVE (NEGATIVE); LEUKOCYTE ESTERASE ,URINE NEGATIVE (NEGATIVE); NITRATE,URINE NEGATIVE (NEGATIVE); OCCULT BLOOD,URINE NEGATIVE (NEGATIVE); PROTEIN,URINE NEGATIVE (NEGATIVE); UROBILINOGEN,URINE 0.2 mg/dL (<=1.0)
[2018-05-24 16:13] LABS: AMPHET/METH SCREEN,URINE NEGATIVE (NEGATIVE); BARBITURATE SCREEN, URINE NEGATIVE (NEGATIVE); BENZODIAZEPINES SCREEN,URINE NEGATIVE (NEGATIVE); CANNABINOID SCREEN,URINE NEGATIVE (NEGATIVE); COCAINE SCREEN,URINE NEGATIVE (NEGATIVE); METHADONE SCREEN, URINE NEGATIVE (NEGATIVE); OPIATE SCREEN,URINE NEGATIVE (NEGATIVE); PHENCYCLIDINE SCREEN,URINE NEGATIVE (NEGATIVE)
[2018-05-24 16:31] LABS: ALBUMIN 3.4 g/dL (3.4-5.0); BILIRUBIN,TOTAL 0.8 mg/dL (0.1-1.0); TOTAL PROTEIN, SERUM 7.5 g/dL (6.4-8.2)
[2018-05-24] MEDS ORDERED: FUROSEMIDE 40 MG/4 ML VIAL IVP ONE (19:30)
[2018-05-24] MEDS ORDERED: ALBUTEROL SULFATE 2.5 MG/0.5 ML NEB SOLUTION NEB ONE (19:30)
[2018-05-24] MEDS ORDERED: MethylPREDNISolone SOD SUCC 125 MG/2 ML VIAL IVP ONE (19:30)
[2018-05-24] MEDS ORDERED: IPRATROPIUM BROMIDE 0.5 MG/2.5 ML NEB SOLUTION NEB ONE (19:30)
[2018-05-24 22:05] VITALS: BP 110/70
== END 2018-05-24 22:12 | disposition home or self-care (01) ==
LOC: EMS 14:38
DX: J44.9 Chronic obstructive pulmonary disease, unspecified (principal); I11.0 Hypertensive heart disease with heart failure; I50.9 Heart failure, unspecified; Z95.0 Presence of cardiac pacemaker; Z87.891 Personal history of nicotine dependence; Z79.899 Other long term (current) drug therapy
CPT/HCPCS: 36415; 71045; 80053; 80307; 81003; 82550; 83880; 84484; 85025; 85610; 85730; 93005; 94640; 96374; 96375; 99285; J1940; J2930

== ENCOUNTER 2018-06-02 01:47 | Inpatient (IN) | payer OTHER ==
[~2018-06-02] VITALS: Ht 167.6 cm; Wt 67.3 kg
[2018-06-02] MEDS ORDERED: METH4TAB PO (01:54)
[2018-06-02 03:21] LABS: BASOPHILS % (AUTO) 0.2 % (0.0-2.0); EOSINOPHILS % (AUTO) 0.1 % (1.0-6.0); HEMATOCRIT 42.5 % (41-53); LYMPHOCYTES # (AUTO) 1.6 K/uL (1.0-4.8); LYMPHOCYTES % (AUTO) 14.9 % (22.0-44.0); MEAN CORPUSCULAR HEMOGLOBIN 25.3 pg (26.0-34.0); MEAN CORPUSCULAR VOLUME 77 fL (80-100); MONOCYTES # (AUTO) 0.9 K/uL (0.1-1.0); MONOCYTES % (AUTO) 8.9 % (2.0-9.0); NEUTROPHILS % (AUTO) 75.9 % (40.0-70.0); PLATELET COUNT (AUTO) 232 K/uL (150-450); RED BLOOD CELL COUNT(AUTO) 5.55 MIL/uL (4.50-5.90)
[2018-06-02 03:51] LABS: CALCIUM, TOTAL 8.8 mg/dL (8.8-10.5); CREATININE 1.47 mg/dL (0.60-1.30); POTASSIUM 4.2 mmol/L (3.5-5.1)
[2018-06-02 03:57] LABS: ALBUMIN 3.8 g/dL (3.4-5.0); BILIRUBIN,TOTAL 1.1 mg/dL (0.1-1.0); TOTAL PROTEIN, SERUM 7.4 g/dL (6.4-8.2)
[2018-06-02] MEDS ORDERED: BUMETANIDE 0.25 MG/ML 4 ML VIAL IVP ONE (04:15)
[2018-06-02 06:16] LABS: AMPHET/METH SCREEN,URINE POSITIVE (NEGATIVE); BARBITURATE SCREEN, URINE NEGATIVE (NEGATIVE); BENZODIAZEPINES SCREEN,URINE NEGATIVE (NEGATIVE); CANNABINOID SCREEN,URINE NEGATIVE (NEGATIVE); COCAINE SCREEN,URINE NEGATIVE (NEGATIVE); METHADONE SCREEN, URINE NEGATIVE (NEGATIVE); OPIATE SCREEN,URINE NEGATIVE (NEGATIVE)
[2018-06-02 06:28] LABS: PHENCYCLIDINE SCREEN,URINE NEGATIVE (NEGATIVE)
[2018-06-02 06:53] VITALS: BP 124/94
[2018-06-02 08:10] VITALS: BP 121/87
[2018-06-02] MEDS ORDERED: ENOXAPARIN SODIUM 80 MG/0.8 ML PF SYRINGE SQ SCH (09:00)
[2018-06-02 10:57] VITALS: BP 104/77
[2018-06-02] MEDS ORDERED: BISACODYL 10 MG RECTAL RECTAL SUPPOSITORY PR PRN (11:00)
[2018-06-02 15:46] VITALS: BP 115/76
[2018-06-02 19:34] VITALS: BP 135/95
[2018-06-02] MEDS: DOCUSATE SODIUM 100 MG CAPSULE PO SCH (20:56)
[2018-06-02] MEDS: ACETAMINOPHEN 325 MG TABLET PO PRN (20:56)
[2018-06-02] MEDS ORDERED: HEPARIN SODIUM,PORCINE 5,000 UNITS/ML VIAL SQ SCH (21:00)
[2018-06-02] MEDS ORDERED: 0.9% SODIUM CHLORIDE 5 ML NEB SOLUTION NEB ONE (21:06)
[2018-06-02] MEDS: ALBUTEROL SULFATE 2.5 MG/0.5 ML NEB SOLUTION NEB PRN (21:09)
[2018-06-03 00:28] VITALS: BP 130/74
[2018-06-03 05:40] VITALS: BP 117/87
[2018-06-03 06:31] LABS: BASOPHILS % (AUTO) 0.5 % (0.0-2.0); EOSINOPHILS % (AUTO) 1.3 % (1.0-6.0); HEMATOCRIT 40.3 % (41-53); HEMOGLOBIN 13.4 g/dL (13.5-17.5); LYMPHOCYTES # (AUTO) 1.6 K/uL (1.0-4.8); LYMPHOCYTES % (AUTO) 19.2 % (22.0-44.0); MEAN CORPUSCULAR HEMOGLOBIN 25.3 pg (26.0-34.0); MEAN CORPUSCULAR HGB CONC 33.2 G/dL (31.0-37.0); MEAN CORPUSCULAR VOLUME 76 fL (80-100); MONOCYTES # (AUTO) 1.1 K/uL (0.1-1.0); MONOCYTES % (AUTO) 12.8 % (2.0-9.0); NEUTROPHILS # (AUTO) 5.6 K/uL (1.8-7.7); NEUTROPHILS % (AUTO) 66.2 % (40.0-70.0); PLATELET COUNT (AUTO) 206 K/uL (150-450); RED BLOOD CELL COUNT(AUTO) 5.28 MIL/uL (4.50-5.90); RED CELL DISTRIBUTION WIDTH 16.2 % (11.5-14.5)
[2018-06-03 06:53] LABS: ALBUMIN 2.8 g/dL (3.4-5.0); CALCIUM, TOTAL 8.3 mg/dL (8.8-10.5); CREATININE 1.49 mg/dL (0.60-1.30); POTASSIUM 3.2 mmol/L (3.5-5.1)
[2018-06-03 07:12] VITALS: BP 117/77
[2018-06-03] MEDS: DOCUSATE SODIUM 100 MG CAPSULE PO SCH ×2 (08:50→20:15)
[2018-06-03] MEDS: ASPIRIN 81 MG CHEWABLE TABLET PO SCH (08:50)
[2018-06-03] MEDS: FAMOTIDINE 20 MG TABLET PO SCH (08:50)
[2018-06-03] MEDS: BUMETANIDE 0.25 MG/ML 4 ML VIAL IVP SCH ×2 (08:50→16:01)
[2018-06-03] MEDS: HEPARIN SODIUM,PORCINE 5,000 UNITS/ML VIAL SQ SCH ×2 (08:50→20:16)
[2018-06-03 11:40] VITALS: BP 135/87
[2018-06-03] MEDS ORDERED: POTASSIUM CHLORIDE 20 MEQ ER TABLET PO ONE (16:00)
[2018-06-03 19:16] VITALS: BP 108/72
[2018-06-03 23:04] VITALS: BP 114/79
[2018-06-04] VITALS (7 sets, daily range): BP systolic 103–122; BP diastolic 49–81
[2018-06-04] MEDS: ACETAMINOPHEN 325 MG TABLET PO PRN ×2 (03:50→10:37)
[2018-06-04] MEDS: DOCUSATE SODIUM 100 MG CAPSULE PO SCH ×2 (08:10→20:16)
[2018-06-04] MEDS: FAMOTIDINE 20 MG TABLET PO SCH (08:10)
[2018-06-04] MEDS: HEPARIN SODIUM,PORCINE 5,000 UNITS/ML VIAL SQ SCH ×2 (08:11→20:16)
[2018-06-04] MEDS: ASPIRIN 81 MG CHEWABLE TABLET PO SCH (08:11)
[2018-06-04] MEDS: BUMETANIDE 0.25 MG/ML 4 ML VIAL IVP SCH (08:11)
[2018-06-04] MEDS ORDERED: 0.9% SODIUM CHLORIDE 5 ML NEB SOLUTION NEB ONE (14:54)
[2018-06-04] MEDS: ALBUTEROL SULFATE 2.5 MG/0.5 ML NEB SOLUTION NEB PRN ×2 (14:57→15:13)
[2018-06-05] MEDS ORDERED: 0.9% SODIUM CHLORIDE 5 ML NEB SOLUTION NEB ONE (00:54)
[2018-06-05] MEDS: ALBUTEROL SULFATE 2.5 MG/0.5 ML NEB SOLUTION NEB PRN (01:01)
[2018-06-05 05:38] VITALS: BP 133/82
[2018-06-05 06:19] LABS: BASOPHILS % (AUTO) 0.9 % (0.0-2.0); EOSINOPHILS % (AUTO) 2.1 % (1.0-6.0); HEMATOCRIT 41.2 % (41-53); HEMOGLOBIN 13.4 g/dL (13.5-17.5); LYMPHOCYTES # (AUTO) 1.3 K/uL (1.0-4.8); LYMPHOCYTES % (AUTO) 18.5 % (22.0-44.0); MEAN CORPUSCULAR HEMOGLOBIN 25.2 pg (26.0-34.0); MEAN CORPUSCULAR HGB CONC 32.6 G/dL (31.0-37.0); MEAN CORPUSCULAR VOLUME 78 fL (80-100); MONOCYTES # (AUTO) 0.8 K/uL (0.1-1.0); MONOCYTES % (AUTO) 10.9 % (2.0-9.0); NEUTROPHILS # (AUTO) 4.9 K/uL (1.8-7.7); NEUTROPHILS % (AUTO) 67.6 % (40.0-70.0); PLATELET COUNT (AUTO) 197 K/uL (150-450); RED BLOOD CELL COUNT(AUTO) 5.32 MIL/uL (4.50-5.90); RED CELL DISTRIBUTION WIDTH 15.9 % (11.5-14.5)
[2018-06-05 06:31] LABS: ALBUMIN 2.9 g/dL (3.4-5.0); BILIRUBIN,TOTAL 1.1 mg/dL (0.1-1.0); CALCIUM, TOTAL 8.8 mg/dL (8.8-10.5); CREATININE 1.39 mg/dL (0.60-1.30); POTASSIUM 3.6 mmol/L (3.5-5.1); TOTAL PROTEIN, SERUM 6.3 g/dL (6.4-8.2)
[2018-06-05 07:41] VITALS: BP 144/89
[2018-06-05] MEDS: BUMETANIDE 0.25 MG/ML 4 ML VIAL IVP SCH (08:03)
[2018-06-05] MEDS: FAMOTIDINE 20 MG TABLET PO SCH (08:04)
[2018-06-05] MEDS: DOCUSATE SODIUM 100 MG CAPSULE PO SCH (08:04)
[2018-06-05] MEDS: HEPARIN SODIUM,PORCINE 5,000 UNITS/ML VIAL SQ SCH (08:04)
[2018-06-05] MEDS: ASPIRIN 81 MG CHEWABLE TABLET PO SCH (08:04)
[2018-06-05] MEDS ORDERED: ASPI81TA39 PO (12:15)
[2018-06-05] MEDS ORDERED: BUME0.5T11 PO (12:16)
[2018-06-05] MEDS ORDERED: LISI2.5T2 PO (12:17)
[2018-06-05] MEDS ORDERED: POTA10TA14 PO (12:18)
[2018-06-05] MEDS ORDERED: BUME1TAB17 PO (12:20)
[2018-06-05 12:39] VITALS: BP 118/78
== END 2018-06-05 14:45 | disposition home or self-care (01) | DRG 194 ==
LOC: EMS 01:48 → 5S 04:27
PROVIDERS: ADMIT Internal Medicine; ATTEND Internal Medicine
DX: I13.0 Hypertensive heart and chronic kidney disease with heart failure and stage 1 through stage 4 chronic kidney disease, or unspecified chronic kidney disease (principal); E43 Unspecified severe protein-calorie malnutrition; I42.9 Cardiomyopathy, unspecified; K75.9 Inflammatory liver disease, unspecified; N18.3 Chronic kidney disease, stage 3 (moderate); I50.23 Acute on chronic systolic (congestive) heart failure; Z91.19 Patient's noncompliance with other medical treatment and regimen; K21.9 Gastro-esophageal reflux disease without esophagitis; Z91.018 Allergy to other foods; Z68.23 Body mass index [BMI] 23.0-23.9, adult; E78.5 Hyperlipidemia, unspecified; F15.10 Other stimulant abuse, uncomplicated; J44.9 Chronic obstructive pulmonary disease, unspecified; Z82.49 Family history of ischemic heart disease and other diseases of the circulatory system; Z87.891 Personal history of nicotine dependence; Z59.0 Homelessness
CPT/HCPCS: 80307; 84132; 85379; 87081; 93005; 93306; 94640; 99291; G0378; J1644; J1650; J3490

== ENCOUNTER 2018-09-14 08:51 | Inpatient (IN) | payer OTHER ==
[~2018-09-14] VITALS: Ht 172.7 cm; Wt 72.2 kg
[~2018-09-14 08:51] MED LIST changes: +ASPI81TA39 PO; +BUME1TAB17 PO; -FURO40 PO; -IPRAHFA IH; -KDUR20 PO; +LISI2.5T2 PO; +POTA10TA14 PO
[2018-09-14] MEDS ORDERED: RANI150T7 PO (09:06)
[2018-09-14] MEDS ORDERED: APIX5TAB PO (09:08)
[2018-09-14] MEDS ORDERED: METF-960 PO (09:08)
[2018-09-14] MEDS ORDERED: FLUT44HFA IH (09:08)
[2018-09-14 09:19] LABS: GLUCOSE,POINT OF CARE 115 MG/DL (70-110)
[2018-09-14 09:58] LABS: BASOPHILS % (AUTO) 1.2 % (0.0-2.0); EOSINOPHILS % (AUTO) 2.6 % (1.0-6.0); HEMATOCRIT 36.6 % (41-53); HEMOGLOBIN 11.7 g/dL (13.5-17.5); LYMPHOCYTES % (AUTO) 18.3 % (22.0-44.0); MEAN CORPUSCULAR HEMOGLOBIN 24.8 pg (26.0-34.0); MEAN CORPUSCULAR VOLUME 78 fL (80-100); MONOCYTES # (AUTO) 0.6 K/uL (0.1-1.0); MONOCYTES % (AUTO) 10.3 % (2.0-9.0); NEUTROPHILS # (AUTO) 3.8 K/uL (1.8-7.7); NEUTROPHILS % (AUTO) 67.6 % (40.0-70.0); PLATELET COUNT (AUTO) 201 K/uL (150-450); RED BLOOD CELL COUNT(AUTO) 4.72 MIL/uL (4.50-5.90)
[2018-09-14 10:20] LABS: B-TYPE NATRIURETIC PEPTIDE 1690 pg/mL (0-100)
[2018-09-14 10:23] LABS: ALANINE AMINOTRANSFERASE 360 U/L (12-78); ALBUMIN 3.3 g/dL (3.4-5.0); ALKALINE PHOSPHATASE 128 U/L (46-116); ANION GAP 10 mmol/L (8-16); ASPARTATE AMINOTRANSFERASE 301 U/L (15-37); BILIRUBIN,TOTAL 1.2 mg/dL (0.1-1.0); CARBON DIOXIDE 23 mmol/L (22-29); CHLORIDE 101 mmol/L (98-107); CREATININE 1.11 mg/dL (0.60-1.30); GLOMERULAR FILTR. RATE CALC > 60 mL/min (>60); GLUCOSE,RANDOM 114 mg/dL (70-110); SODIUM SERUM 134 mmol/L (136-145); UREA NITROGEN, BLOOD 25 mg/dL (7-18)
[2018-09-14] MEDS ORDERED: FUROSEMIDE 40 MG/4 ML VIAL IVP ONE (11:15)
[2018-09-14] MEDS ORDERED: NITROGLYCERIN 2% (1 GM=INCH) PACKET TP ONE (11:15)
[2018-09-14 12:01] LABS: APPEARANCE,URINE CLEAR (CLEAR); BILIRUBIN,URINE NEGATIVE (NEGATIVE); GLUCOSE, URINE (UA) NEGATIVE (NEGATIVE); KETONES,URINE NEGATIVE (NEGATIVE); LEUKOCYTE ESTERASE ,URINE NEGATIVE (NEGATIVE); NITRATE,URINE NEGATIVE (NEGATIVE); OCCULT BLOOD,URINE NEGATIVE (NEGATIVE); PROTEIN,URINE SEE CONFIRM (NEGATIVE)
[2018-09-14 12:09] LABS: SULFOSALICYLIC ACID,URINE 1+ (Negative)
[2018-09-14 12:11] LABS: BACTERIA,URINE None Seen /HPF (None Seen); RBC,URINE None Seen /HPF (0-2); WBC,URINE None Seen /HPF (0-5)
[2018-09-14] MEDS ORDERED: ACETAMINOPHEN 325 MG TABLET PO PRN (13:15)
[2018-09-14] MEDS: LISINOPRIL 5 MG TABLET PO SCH (13:30)
[2018-09-14] MEDS: ASPIRIN 81 MG CHEWABLE TABLET PO SCH (13:31)
[2018-09-14 13:33] LABS: INR 1.2 (0.9-1.1); PROTHROMBIN TIME 12.8 SEC (9.4-11.6)
[2018-09-14 15:28] VITALS: BP 114/58
[2018-09-14 19:24] VITALS: BP 110/73
[2018-09-14] MEDS: DOCUSATE SODIUM 100 MG CAPSULE PO SCH (21:01)
[2018-09-15] VITALS (7 sets, daily range): BP systolic 98–138; BP diastolic 59–72
[2018-09-15 07:30] LABS: ALBUMIN 2.7 g/dL (3.4-5.0); CALCIUM, TOTAL 8.7 mg/dL (8.8-10.5); CREATININE 1.27 mg/dL (0.60-1.30); POTASSIUM 3.8 mmol/L (3.5-5.1); TOTAL PROTEIN, SERUM 6.3 g/dL (6.4-8.2)
[2018-09-15 08:04] LABS: AMPHET/METH SCREEN,URINE NEGATIVE (NEGATIVE); BARBITURATE SCREEN, URINE NEGATIVE (NEGATIVE); BENZODIAZEPINES SCREEN,URINE NEGATIVE (NEGATIVE); CANNABINOID SCREEN,URINE NEGATIVE (NEGATIVE); COCAINE SCREEN,URINE NEGATIVE (NEGATIVE); METHADONE SCREEN, URINE NEGATIVE (NEGATIVE); OPIATE SCREEN,URINE NEGATIVE (NEGATIVE)
[2018-09-15 08:07] LABS: PHENCYCLIDINE SCREEN,URINE NEGATIVE (NEGATIVE)
[2018-09-15] MEDS: ASPIRIN 81 MG CHEWABLE TABLET PO SCH (08:28)
[2018-09-15] MEDS: FAMOTIDINE 20 MG TABLET PO SCH (08:29)
[2018-09-15] MEDS: FUROSEMIDE 40 MG/4 ML VIAL IVP SCH (08:30)
[2018-09-15] MEDS: DOCUSATE SODIUM 100 MG CAPSULE PO SCH ×2 (08:32→20:12)
[2018-09-15] MEDS: LISINOPRIL 5 MG TABLET PO SCH (12:20)
[2018-09-16 00:14] VITALS: BP 100/68
[2018-09-16 04:01] VITALS: BP 99/62
[2018-09-16 06:22] LABS: ALANINE AMINOTRANSFERASE 317 U/L (12-78); ALBUMIN 2.7 g/dL (3.4-5.0); ALKALINE PHOSPHATASE 101 U/L (46-116); ANION GAP 6 mmol/L (8-16); ASPARTATE AMINOTRANSFERASE 214 U/L (15-37); BILIRUBIN,TOTAL 0.9 mg/dL (0.1-1.0); CALCIUM, TOTAL 8.3 mg/dL (8.8-10.5); CARBON DIOXIDE 29 mmol/L (22-29); CHLORIDE 102 mmol/L (98-107); GLOMERULAR FILTR. RATE CALC > 60 mL/min (>60); GLUCOSE,RANDOM 138 mg/dL (70-110); POTASSIUM 3.7 mmol/L (3.5-5.1); SODIUM SERUM 137 mmol/L (136-145); TOTAL PROTEIN, SERUM 6.2 g/dL (6.4-8.2); UREA NITROGEN, BLOOD 24 mg/dL (7-18)
[2018-09-16 07:46] VITALS: BP 112/72
[2018-09-16] MEDS: LISINOPRIL 5 MG TABLET PO SCH (08:49)
[2018-09-16] MEDS: ASPIRIN 81 MG CHEWABLE TABLET PO SCH (08:50)
[2018-09-16] MEDS: DOCUSATE SODIUM 100 MG CAPSULE PO SCH (08:50)
[2018-09-16] MEDS: FAMOTIDINE 20 MG TABLET PO SCH (08:50)
[2018-09-16] MEDS: FUROSEMIDE 40 MG/4 ML VIAL IVP SCH (08:50)
[2018-09-16 11:12] VITALS: BP 101/66
== END 2018-09-16 15:30 | disposition home or self-care (01) | DRG 194 ==
LOC: EMS 08:53 → 5S 13:13
PROVIDERS: ADMIT Internal Medicine; ATTEND Internal Medicine
DX: I11.0 Hypertensive heart disease with heart failure (principal); E44.0 Moderate protein-calorie malnutrition; I42.9 Cardiomyopathy, unspecified; I50.23 Acute on chronic systolic (congestive) heart failure; R74.0 Nonspecific elevation of levels of transaminase and lactic acid dehydrogenase [LDH]; E11.9 Type 2 diabetes mellitus without complications; I49.3 Ventricular premature depolarization; I50.21 Acute systolic (congestive) heart failure; J44.9 Chronic obstructive pulmonary disease, unspecified; B19.9 Unspecified viral hepatitis without hepatic coma; F19.90 Other psychoactive substance use, unspecified, uncomplicated; Z87.891 Personal history of nicotine dependence; Z95.810 Presence of automatic (implantable) cardiac defibrillator; Z68.24 Body mass index [BMI] 24.0-24.9, adult; Z91.018 Allergy to other foods; Z79.899 Other long term (current) drug therapy; Z91.19 Patient's noncompliance with other medical treatment and regimen; Z82.49 Family history of ischemic heart disease and other diseases of the circulatory system; Z79.84 Long term (current) use of oral hypoglycemic drugs
CPT/HCPCS: 76705; 83735; 93005; 96374; 97161; G0378; J1940

== ENCOUNTER 2019-01-14 22:14 | Inpatient (IN) | payer OTHER ==
[~2019-01-14] VITALS: Ht 172.7 cm; Wt 65.6 kg
[~2019-01-14 22:14] MED LIST changes: -BUME1TAB17 PO; +BUME1TAB34 PO; +FLUT44HFA IH; -POTA10TA14 PO; +RANI150T7 PO
[2019-01-14 23:09] LABS: BASOPHILS % (AUTO) 0.3 % (0.0-2.0); EOSINOPHILS % (AUTO) 0.7 % (1.0-6.0); HEMATOCRIT 36.9 % (41-53); HEMOGLOBIN 11.9 g/dL (13.5-17.5); LYMPHOCYTES # (AUTO) 0.9 K/uL (1.0-4.8); LYMPHOCYTES % (AUTO) 11.3 % (22.0-44.0); MEAN CORPUSCULAR HEMOGLOBIN 24.6 pg (26.0-34.0); MEAN CORPUSCULAR HGB CONC 32.1 G/dL (31.0-37.0); MEAN CORPUSCULAR VOLUME 77 fL (80-100); MONOCYTES # (AUTO) 1.1 K/uL (0.1-1.0); MONOCYTES % (AUTO) 14.1 % (2.0-9.0); NEUTROPHILS # (AUTO) 5.9 K/uL (1.8-7.7); NEUTROPHILS % (AUTO) 73.6 % (40.0-70.0); PLATELET COUNT (AUTO) 174 K/uL (150-450); RED BLOOD CELL COUNT(AUTO) 4.82 MIL/uL (4.50-5.90); RED CELL DISTRIBUTION WIDTH 15.8 % (11.5-14.5)
[2019-01-14 23:21] LABS: ANION GAP 15 mmol/L (8-16); CARBON DIOXIDE 22 mmol/L (22-29); CHLORIDE 96 mmol/L (98-107); CREATININE 6.27 mg/dL (0.60-1.30); GLUCOSE,RANDOM 116 mg/dL (70-110); SODIUM SERUM 133 mmol/L (136-145); UREA NITROGEN, BLOOD 72 mg/dL (7-18)
[2019-01-14 23:22] LABS: CALCIUM, TOTAL 9.1 mg/dL (8.8-10.5); GLOMERULAR FILTR. RATE CALC 9 mL/min (>60)
[2019-01-14 23:28] LABS: ALANINE AMINOTRANSFERASE 32 U/L (12-78); ALBUMIN 4.6 g/dL (3.4-5.0); ALKALINE PHOSPHATASE 59 U/L (46-116); ASPARTATE AMINOTRANSFERASE 65 U/L (15-37); BILIRUBIN,TOTAL 1.2 mg/dL (0.1-1.0); LIPASE 316 U/L (73-393)
[2019-01-15] MEDS ORDERED: SODIUM CHLORIDE 0.9% 1,000 ML IV ONE (00:15)
[2019-01-15 01:00] LABS: APPEARANCE,URINE CLEAR (CLEAR); BILIRUBIN,URINE NEGATIVE (NEGATIVE); GLUCOSE, URINE (UA) NEGATIVE (NEGATIVE); KETONES,URINE NEGATIVE (NEGATIVE); LEUKOCYTE ESTERASE ,URINE NEGATIVE (NEGATIVE); NITRATE,URINE NEGATIVE (NEGATIVE); OCCULT BLOOD,URINE MODERATE (NEGATIVE); PROTEIN,URINE TRACE (NEGATIVE); UROBILINOGEN,URINE 0.2 mg/dL (<=1.0)
[2019-01-15 01:04] LABS: AMPHET/METH SCREEN,URINE POSITIVE (NEGATIVE); BARBITURATE SCREEN, URINE NEGATIVE (NEGATIVE); BENZODIAZEPINES SCREEN,URINE NEGATIVE (NEGATIVE); COCAINE SCREEN,URINE NEGATIVE (NEGATIVE); METHADONE SCREEN, URINE NEGATIVE (NEGATIVE); OPIATE SCREEN,URINE NEGATIVE (NEGATIVE)
[2019-01-15 01:20] LABS: CANNABINOID SCREEN,URINE NEGATIVE (NEGATIVE); PHENCYCLIDINE SCREEN,URINE NEGATIVE (NEGATIVE)
[2019-01-15 01:26] LABS: BACTERIA,URINE None Seen /HPF (None Seen); SQUAMOUS EPITHELIAL CELL,UR Rare /LPF (None Seen); WBC,URINE 0-2 /HPF (0-5)
[2019-01-15 02:27] VITALS: BP 106/62
[2019-01-15 05:30] VITALS: BP 100/68
[2019-01-15] MEDS ORDERED: INFLUENZA VIRUS VACCINE QVS 2019-20 (3YR+)/PF 60 MCG/0.5 ML SYRINGE IM ONE (06:00)
[2019-01-15 07:36] VITALS: BP 102/74
[2019-01-15] MEDS ORDERED: HEPARIN SODIUM,PORCINE 5,000 UNITS/ML VIAL SQ SCH (08:00)
[2019-01-15] MEDS ORDERED: ONDANSETRON HCL 4 MG/2 ML VIAL IVP PRN (08:00)
[2019-01-15] MEDS ORDERED: ZOLPIDEM TARTRATE 5 MG TABLET PO PRN (08:00)
[2019-01-15] MEDS ORDERED: 0.9% SODIUM CHLORIDE 10 ML SYRINGE IVP PRN (08:00)
[2019-01-15] MEDS ORDERED: BUMETANIDE 1 MG TABLET PO SCH (09:00)
[2019-01-15] MEDS ORDERED: LISINOPRIL 5 MG TABLET PO SCH (09:00)
[2019-01-15] MEDS: RANITIDINE HCL 150 MG TABLET PO SCH ×2 (09:09→21:06)
[2019-01-15] MEDS: ASPIRIN 81 MG CHEWABLE TABLET PO SCH (09:09)
[2019-01-15] MEDS: DOCUSATE SODIUM 100 MG CAPSULE PO SCH ×2 (09:09→20:20)
[2019-01-15] MEDS: PANTOPRAZOLE SODIUM 40 MG DR TABLET PO SCH (09:09)
[2019-01-15 11:15] VITALS: BP 108/70
[2019-01-15] MEDS ORDERED: HYPROMELLOSE 0.5% 15 ML OPHTHALMIC SOLUTION OU PRN (14:30)
[2019-01-15 15:38] VITALS: BP 101/68
[2019-01-15 19:14] VITALS: BP 110/56
[2019-01-15 20:05] LABS: APPEARANCE,URINE CLEAR (CLEAR); BILIRUBIN,URINE NEGATIVE (NEGATIVE); CREATININE,URINE RANDOM 158.2 mg/dL (30.0-125.0); GLUCOSE, URINE (UA) NEGATIVE (NEGATIVE); KETONES,URINE NEGATIVE (NEGATIVE); LEUKOCYTE ESTERASE ,URINE NEGATIVE (NEGATIVE); NITRATE,URINE NEGATIVE (NEGATIVE); OCCULT BLOOD,URINE TRACE (NEGATIVE); PH,URINE 5.5 (5.0-8.0); PROTEIN,URINE TRACE (NEGATIVE); PROTEIN,URINE RANDOM 38 mg/dL (0-11.9); SODIUM,URINE RANDOM 44 mmol/l (20-110); UROBILINOGEN,URINE 0.2 mg/dL (<=1.0)
[2019-01-15 20:18] LABS: RBC,URINE 0-2 /HPF (0-2); WBC,URINE None Seen /HPF (0-5)
[2019-01-15 20:20] LABS: BACTERIA,URINE Moderate /HPF (None Seen); SQUAMOUS EPITHELIAL CELL,UR Rare /LPF (None Seen)
[2019-01-15] MEDS ORDERED: TraMADol HCL 50 MG TABLET PO PRN (20:30)
[2019-01-15] MEDS: HEPARIN SODIUM,PORCINE 5,000 UNITS/ML VIAL SQ SCH (21:06)
[2019-01-15] MEDS: ACETAMINOPHEN 325 MG TABLET PO PRN (21:08)
[2019-01-16 00:15] VITALS: BP 99/58
[2019-01-16 04:29] VITALS: BP 102/59
[2019-01-16] MEDS: ACETAMINOPHEN 325 MG TABLET PO PRN ×2 (04:36→09:35)
[2019-01-16 06:52] LABS: BASOPHILS % (AUTO) 0.3 % (0.0-2.0); EOSINOPHILS % (AUTO) 0.5 % (1.0-6.0); HEMATOCRIT 36.8 % (41-53); HEMOGLOBIN 12.2 g/dL (13.5-17.5); LYMPHOCYTES # (AUTO) 1.2 K/uL (1.0-4.8); LYMPHOCYTES % (AUTO) 15.3 % (22.0-44.0); MEAN CORPUSCULAR HGB CONC 33.2 G/dL (31.0-37.0); MEAN CORPUSCULAR VOLUME 75 fL (80-100); MONOCYTES # (AUTO) 1.4 K/uL (0.1-1.0); NEUTROPHILS % (AUTO) 65.9 % (40.0-70.0); PLATELET COUNT (AUTO) 170 K/uL (150-450); RED BLOOD CELL COUNT(AUTO) 4.87 MIL/uL (4.50-5.90); RED CELL DISTRIBUTION WIDTH 15.7 % (11.5-14.5)
[2019-01-16 07:03] LABS: CALCIUM, TOTAL 9.5 mg/dL (8.8-10.5); CREATININE 1.46 mg/dL (0.60-1.30); MAGNESIUM 1.6 mg/dL (1.80-2.40); POTASSIUM 4.2 mmol/L (3.5-5.1)
[2019-01-16 07:43] VITALS: BP 95/61
[2019-01-16] MEDS: PANTOPRAZOLE SODIUM 40 MG DR TABLET PO SCH (09:23)
[2019-01-16] MEDS: ASPIRIN 81 MG CHEWABLE TABLET PO SCH (09:24)
[2019-01-16] MEDS: DOCUSATE SODIUM 100 MG CAPSULE PO SCH (09:24)
[2019-01-16] MEDS: RANITIDINE HCL 150 MG TABLET PO SCH (09:24)
[2019-01-16] MEDS: HEPARIN SODIUM,PORCINE 5,000 UNITS/ML VIAL SQ SCH (09:25)
[2019-01-16] MEDS ORDERED: MAGNESIUM SULFATE 3 GM in DEXTROSE 5%-WATER 100 ML IV ONE (10:30)
[2019-01-16 11:04] VITALS: BP 94/47
[2019-01-16] MEDS ORDERED: SODIUM CHLORIDE 0.9% 100 ML ONE (11:58)
[2019-01-16 15:32] VITALS: BP 105/68
== END 2019-01-16 18:05 | disposition home or self-care (01) | DRG 469 ==
LOC: EMS 22:15 → 5S 01-15 01:00
PROVIDERS: ADMIT Internal Medicine; ATTEND Internal Medicine
DX: N17.9 Acute kidney failure, unspecified (principal); E11.22 Type 2 diabetes mellitus with diabetic chronic kidney disease; I42.8 Other cardiomyopathies; E44.0 Moderate protein-calorie malnutrition; I13.0 Hypertensive heart and chronic kidney disease with heart failure and stage 1 through stage 4 chronic kidney disease, or unspecified chronic kidney disease; E87.1 Hypo-osmolality and hyponatremia; I50.22 Chronic systolic (congestive) heart failure; D50.9 Iron deficiency anemia, unspecified; F15.90 Other stimulant use, unspecified, uncomplicated; B19.9 Unspecified viral hepatitis without hepatic coma; D64.9 Anemia, unspecified; J44.9 Chronic obstructive pulmonary disease, unspecified; T78.8XXA Other adverse effects, not elsewhere classified, initial encounter; N18.9 Chronic kidney disease, unspecified; X58.XXXA Exposure to other specified factors, initial encounter; Z82.49 Family history of ischemic heart disease and other diseases of the circulatory system; Z91.19 Patient's noncompliance with other medical treatment and regimen; Z95.810 Presence of automatic (implantable) cardiac defibrillator; Z23 Encounter for immunization; Z68.22 Body mass index [BMI] 22.0-22.9, adult
CPT/HCPCS: 76770; 82570; 83735; 84156; 84300; 84540; 87040; 87086; 90686; 93005; 93306; G0480; J1644; J3475; J7050; J7060

== ENCOUNTER 2019-04-21 12:15 | Emergency (ER) | payer OTHER ==
[~2019-04-21] VITALS: Ht 170.2 cm; Wt 75.0 kg
[~2019-04-21 12:15] MED LIST changes: -BUME1TAB34 PO; -FLUT44HFA IH; -LISI2.5T2 PO; -RANI150T7 PO
[2019-04-21] MEDS ORDERED: ACETAMINOPHEN 500 MG TABLET PO ONE (13:15)
[2019-04-21 13:22] LABS: GLUCOSE,POINT OF CARE 125 MG/DL (70-110)
[2019-04-21 14:14] LABS: INFLUENZA TYPE A NEGATIVE FOR TYPE A (NEGATIVE); INFLUENZA TYPE B NEGATIVE FOR TYPE B (NEGATIVE)
[2019-04-21 14:52] LABS: BASOPHILS % (AUTO) 0.4 % (0.0-2.0); EOSINOPHILS % (AUTO) 0.1 % (1.0-6.0); HEMATOCRIT 37.4 % (41-53); HEMOGLOBIN 12.2 g/dL (13.5-17.5); LYMPHOCYTES # (AUTO) 0.8 K/uL (1.0-4.8); LYMPHOCYTES % (AUTO) 8.8 % (22.0-44.0); MEAN CORPUSCULAR HEMOGLOBIN 24.9 pg (26.0-34.0); MEAN CORPUSCULAR HGB CONC 32.7 G/dL (31.0-37.0); MEAN CORPUSCULAR VOLUME 76 fL (80-100); MONOCYTES # (AUTO) 0.9 K/uL (0.1-1.0); MONOCYTES % (AUTO) 10.5 % (2.0-9.0); NEUTROPHILS # (AUTO) 6.9 K/uL (1.8-7.7); NEUTROPHILS % (AUTO) 80.2 % (40.0-70.0); PLATELET COUNT (AUTO) 137 K/uL (150-450); RED BLOOD CELL COUNT(AUTO) 4.92 MIL/uL (4.50-5.90); RED CELL DISTRIBUTION WIDTH 14.7 % (11.5-14.5)
[2019-04-21 15:08] LABS: ANION GAP 13 mmol/L (8-16); CALCIUM, TOTAL 6.1 mg/dL (8.8-10.5); CARBON DIOXIDE 16 mmol/L (22-29); CHLORIDE 112 mmol/L (98-107); CREATININE 0.92 mg/dL (0.60-1.30); GLOMERULAR FILTR. RATE CALC > 60 mL/min (>60); GLUCOSE,RANDOM 129 mg/dL (70-110); POTASSIUM 3.1 mmol/L (3.5-5.1); SODIUM SERUM 141 mmol/L (136-145); UREA NITROGEN, BLOOD 14 mg/dL (7-18)
[2019-04-21 15:13] LABS: ALANINE AMINOTRANSFERASE 18 U/L (12-78); ALBUMIN 2.5 g/dL (3.4-5.0); ALKALINE PHOSPHATASE 53 U/L (46-116); ASPARTATE AMINOTRANSFERASE 17 U/L (15-37); BILIRUBIN,TOTAL 1.1 mg/dL (0.1-1.0)
[2019-04-21 15:34] LABS: B-TYPE NATRIURETIC PEPTIDE 899 pg/mL (0-100)
[2019-04-21] MEDS ORDERED: CefTRIAXone 1 GM/DEXTROSE 50 ML IV ONE (15:45)
[2019-04-21] MEDS ORDERED: OSELTAMIVIR PHOSPHATE 75 MG CAPSULE PO ONE (15:45)
[2019-04-21] MEDS ORDERED: POTASSIUM CHLORIDE 20 MEQ ER TABLET PO ONE (16:00)
[2019-04-21 17:06] VITALS: BP 116/58
== END 2019-04-21 18:06 | disposition home or self-care (01) ==
LOC: EMS 12:16
DX: J20.9 Acute bronchitis, unspecified (principal); J11.1 Influenza due to unidentified influenza virus with other respiratory manifestations; I13.0 Hypertensive heart and chronic kidney disease with heart failure and stage 1 through stage 4 chronic kidney disease, or unspecified chronic kidney disease; N18.9 Chronic kidney disease, unspecified; I50.9 Heart failure, unspecified; J44.9 Chronic obstructive pulmonary disease, unspecified; F17.210 Nicotine dependence, cigarettes, uncomplicated; F19.90 Other psychoactive substance use, unspecified, uncomplicated; Z95.0 Presence of cardiac pacemaker
CPT/HCPCS: 36415; 71045; 80053; 82962; 83880; 85025; 87804; 93005; 96365; 99285; G0480; J0696

== ENCOUNTER 2020-12-23 23:11 | Emergency (ER) | payer OTHER ==
[~2020-12-23] VITALS: Ht 172.7 cm; Wt 65.9 kg
[2020-12-24] MEDS ORDERED: OXYGEN THERAPY IH SCH
[2020-12-24 00:09] LABS: COVID AG,FIA SOURCE NASOPHARYNGEAL
[2020-12-24 00:31] LABS: BASOPHILS % (AUTO) 0.7 % (0.0-2.0); EOSINOPHILS % (AUTO) 0.3 % (1.0-6.0); HEMATOCRIT 38.9 % (41-53); HEMOGLOBIN 12.3 g/dL (13.5-17.5); LYMPHOCYTES # (AUTO) 1.1 K/uL (1.0-4.8); LYMPHOCYTES % (AUTO) 17.9 % (22.0-44.0); MEAN CORPUSCULAR HEMOGLOBIN 24.9 pg (26.0-34.0); MEAN CORPUSCULAR HGB CONC 31.6 G/dL (31.0-37.0); MEAN CORPUSCULAR VOLUME 79 fL (80-100); MONOCYTES # (AUTO) 0.5 K/uL (0.1-1.0); MONOCYTES % (AUTO) 8.1 % (2.0-9.0); NEUTROPHILS # (AUTO) 4.6 K/uL (1.8-7.7); PLATELET COUNT (AUTO) 239 K/uL (150-450); RED BLOOD CELL COUNT(AUTO) 4.93 MIL/uL (4.50-5.90); RED CELL DISTRIBUTION WIDTH 16.5 % (11.5-14.5)
[2020-12-24 00:38] LABS: CREATININE 1.74 mg/dL (0.60-1.30); POTASSIUM 4.9 mmol/L (3.5-5.1)
[2020-12-24 00:43] LABS: INR 1.3 (0.9-1.1); PROTHROMBIN TIME 13.5 SEC (9.4-11.6)
[2020-12-24 01:02] LABS: TOTAL PROTEIN, SERUM 7.9 g/dL (6.4-8.2)
[2020-12-24] MEDS ORDERED: METOPROLOL SUCCINATE 25 MG ER TABLET PO ONE (01:15)
[2020-12-24] MEDS ORDERED: BUMETANIDE 1 MG TABLET PO ONE (01:15)
[2020-12-24 01:30] VITALS: BP 122/90
== END 2020-12-24 01:50 | disposition home or self-care (01) ==
LOC: EMS 23:12
DX: I11.0 Hypertensive heart disease with heart failure (principal); I50.9 Heart failure, unspecified; J44.9 Chronic obstructive pulmonary disease, unspecified; Z87.891 Personal history of nicotine dependence; F15.90 Other stimulant use, unspecified, uncomplicated; Z20.822 Contact with and (suspected) exposure to COVID-19
CPT/HCPCS: 71045; 80053; 82550; 82962; 83880; 84484; 85025; 85610; 85730; 93005; 99285; 36415-L1; 36415-TC

== ENCOUNTER 2021-06-08 18:55 | Inpatient (IN) | payer OTHER ==
[~2021-06-08] VITALS: Ht 172.7 cm; Wt 67.0 kg
[2021-06-08 20:17] LABS: BASOPHILS % (AUTO) 0.2 % (0.0-2.0); EOSINOPHILS % (AUTO) 1.2 % (1.0-6.0); HEMATOCRIT 36.5 % (41-53); LYMPHOCYTES # (AUTO) 0.8 K/uL (1.0-4.8); LYMPHOCYTES % (AUTO) 13.1 % (22.0-44.0); MEAN CORPUSCULAR HEMOGLOBIN 24.4 pg (26.0-34.0); MEAN CORPUSCULAR HGB CONC 32.8 G/dL (31.0-37.0); MEAN CORPUSCULAR VOLUME 74 fL (80-100); MONOCYTES # (AUTO) 2.1 K/uL (0.1-1.0); MONOCYTES % (AUTO) 33.6 % (2.0-9.0); NEUTROPHILS # (AUTO) 3.3 K/uL (1.8-7.7); NEUTROPHILS % (AUTO) 51.9 % (40.0-70.0); PLATELET COUNT (AUTO) 211 K/uL (150-450); RED BLOOD CELL COUNT(AUTO) 4.91 MIL/uL (4.50-5.90); RED CELL DISTRIBUTION WIDTH 17.6 % (11.5-14.5)
[2021-06-08 20:57] LABS: ANION GAP 8 mmol/L (8-16); CALCIUM, TOTAL 8.9 mg/dL (8.8-10.5); CARBON DIOXIDE 27 mmol/L (22-29); CHLORIDE 98 mmol/L (98-107); CREATININE 1.23 mg/dL (0.60-1.30); GLOMERULAR FILTR. RATE CALC > 60 mL/min (>60); GLUCOSE,RANDOM 138 mg/dL (70-110); POTASSIUM 4.7 mmol/L (3.5-5.1); SODIUM SERUM 133 mmol/L (136-145); UREA NITROGEN, BLOOD 17 mg/dL (7-18)
[2021-06-08] MEDS ORDERED: ONDANSETRON HCL 4 MG/2 ML VIAL IVP PRN (21:00)
[2021-06-08] MEDS ORDERED: OxyCODONE HCL/ACETAMINOPHEN 5-325 MG TABLET PO PRN (21:00)
[2021-06-08] MEDS ORDERED: LORazepam 2 MG/ML VIAL IVP PRN (21:00)
[2021-06-08] MEDS ORDERED: MORPHINE SULFATE 2 MG/ML SYRINGE IVP PRN (21:00)
[2021-06-08 21:02] LABS: ALANINE AMINOTRANSFERASE 740 U/L (12-78); ALBUMIN 2.9 g/dL (3.4-5.0); ALKALINE PHOSPHATASE 97 U/L (46-116); ASPARTATE AMINOTRANSFERASE 110 U/L (15-37); BILIRUBIN,TOTAL 2.4 mg/dL (0.1-1.0); LIPASE 191 U/L (73-393); TOTAL PROTEIN, SERUM 7.2 g/dL (6.4-8.2)
[2021-06-08 21:09] LABS: PLATELET MORPHOLOGY COMMENT LARGE PLTS PRESENT
[2021-06-08 21:21] LABS: B-TYPE NATRIURETIC PEPTIDE 1920 pg/mL (0-100)
[2021-06-08] MEDS: ASPIRIN 81 MG CHEWABLE TABLET PO SCH (21:24)
[2021-06-08] MEDS: FUROSEMIDE 20 MG TABLET PO SCH (21:46)
[2021-06-08] MEDS: DOCUSATE SODIUM 100 MG CAPSULE PO SCH (21:46)
[2021-06-08] MEDS: HEPARIN SODIUM,PORCINE 5,000 UNITS/ML VIAL SQ SCH (23:35)
[2021-06-08 23:37] LABS: AMPHET/METH SCREEN,URINE NEGATIVE (NEGATIVE); BARBITURATE SCREEN, URINE NEGATIVE (NEGATIVE); BENZODIAZEPINES SCREEN,URINE NEGATIVE (NEGATIVE); CANNABINOID SCREEN,URINE NEGATIVE (NEGATIVE); COCAINE SCREEN,URINE NEGATIVE (NEGATIVE); METHADONE SCREEN, URINE NEGATIVE (NEGATIVE); OPIATE SCREEN,URINE NEGATIVE (NEGATIVE)
[2021-06-08 23:41] LABS: PHENCYCLIDINE SCREEN,URINE NEGATIVE (NEGATIVE)
[2021-06-09] VITALS (7 sets, daily range): BP systolic 102–128; BP diastolic 68–78
[2021-06-09] MEDS ORDERED: INFLUENZA VIRUS VACCINE QVS 2021-22 (6MO+)/PF 60 MCG/0.5 ML SYRINGE IM. ONE (02:15)
[2021-06-09] MEDS: DOCUSATE SODIUM 100 MG CAPSULE PO SCH ×2 (08:30→21:00)
[2021-06-09] MEDS: HEPARIN SODIUM,PORCINE 5,000 UNITS/ML VIAL SQ SCH ×3 (08:30→23:41)
[2021-06-09] MEDS: FUROSEMIDE 20 MG TABLET PO SCH (08:31)
[2021-06-09] MEDS: FAMOTIDINE 20 MG TABLET PO SCH (08:31)
[2021-06-09] MEDS ORDERED: FUROSEMIDE 20 MG/2 ML VIAL IVP SCH (11:00)
[2021-06-09] MEDS ORDERED: ALBUTEROL SULFATE 2.5 MG/0.5 ML NEB SOLUTION NEB PRN (11:00)
[2021-06-09] MEDS ORDERED: IPRATROPIUM BROMIDE 0.5 MG/2.5 ML NEB SOLUTION NEB PRN (11:00)
[2021-06-09] MEDS: MethylPREDNISolone SOD SUCC 125 MG/2 ML VIAL IVP SCH ×3 (11:12→23:40)
[2021-06-09] MEDS ORDERED: FUROSEMIDE 20 MG/2 ML VIAL IVP ONE (11:30)
[2021-06-09] MEDS ORDERED: SODIUM CHLORIDE 0.9% 100 ML ONE (12:30)
[2021-06-09] MEDS: CefTRIAXone 1 GM/DEXTROSE 50 ML IV SCH (12:36)
[2021-06-09] MEDS: BENZONATATE 100 MG CAPSULE PO SCH ×2 (17:08→21:01)
[2021-06-09] MEDS: ASPIRIN 81 MG CHEWABLE TABLET PO SCH (21:00)
[2021-06-09] MEDS: FUROSEMIDE 40 MG/4 ML VIAL IVP SCH (21:00)
[2021-06-09] MEDS: GuaiFENesin SR 600 MG ER TABLET PO SCH (21:00)
[2021-06-09] MEDS: CARVEDILOL 3.125 MG TABLET PO SCH (21:01)
[2021-06-10] VITALS (7 sets, daily range): BP systolic 93–136; BP diastolic 67–76
[2021-06-10] MEDS: MethylPREDNISolone SOD SUCC 125 MG/2 ML VIAL IVP SCH ×3 (05:06→16:53)
[2021-06-10 05:36] LABS: BASOPHILS % (AUTO) 0.1 % (0.0-2.0); EOSINOPHILS % (AUTO) 0 % (1.0-6.0); HEMATOCRIT 34.6 % (41-53); HEMOGLOBIN 11.3 g/dL (13.5-17.5); LYMPHOCYTES # (AUTO) 0.5 K/uL (1.0-4.8); LYMPHOCYTES % (AUTO) 4.9 % (22.0-44.0); MEAN CORPUSCULAR HEMOGLOBIN 24.6 pg (26.0-34.0); MEAN CORPUSCULAR HGB CONC 32.6 G/dL (31.0-37.0); MEAN CORPUSCULAR VOLUME 76 fL (80-100); MONOCYTES # (AUTO) 0.9 K/uL (0.1-1.0); MONOCYTES % (AUTO) 9.1 % (2.0-9.0); NEUTROPHILS # (AUTO) 8.8 K/uL (1.8-7.7); PLATELET COUNT (AUTO) 206 K/uL (150-450); RED BLOOD CELL COUNT(AUTO) 4.58 MIL/uL (4.50-5.90)
[2021-06-10 05:45] LABS: NEUTROPHILS % (AUTO) 85.9 % (40.0-70.0)
[2021-06-10 05:49] LABS: CALCIUM, TOTAL 8.4 mg/dL (8.8-10.5); CREATININE 1.24 mg/dL (0.60-1.30); POTASSIUM 4.3 mmol/L (3.5-5.1)
[2021-06-10] MEDS: ALBUTEROL SULFATE 2.5 MG/0.5 ML NEB SOLUTION NEB SCH ×3 (08:21→19:40)
[2021-06-10] MEDS: IPRATROPIUM BROMIDE 0.5 MG/2.5 ML NEB SOLUTION NEB SCH ×3 (08:23→19:40)
[2021-06-10] MEDS: DOCUSATE SODIUM 100 MG CAPSULE PO SCH ×2 (08:39→21:00)
[2021-06-10] MEDS: FAMOTIDINE 20 MG TABLET PO SCH (08:40)
[2021-06-10] MEDS: GuaiFENesin SR 600 MG ER TABLET PO SCH ×2 (08:40→21:18)
[2021-06-10] MEDS: CARVEDILOL 3.125 MG TABLET PO SCH ×2 (08:40→21:18)
[2021-06-10] MEDS: BENZONATATE 100 MG CAPSULE PO SCH ×3 (08:40→21:19)
[2021-06-10] MEDS: HEPARIN SODIUM,PORCINE 5,000 UNITS/ML VIAL SQ SCH ×2 (08:41→15:57)
[2021-06-10] MEDS: FUROSEMIDE 40 MG/4 ML VIAL IVP SCH ×2 (08:41→21:17)
[2021-06-10] MEDS: CefTRIAXone 1 GM/DEXTROSE 50 ML IV SCH (10:25)
[2021-06-10] MEDS: ASPIRIN 81 MG CHEWABLE TABLET PO SCH (21:18)
[2021-06-11] MEDS: HEPARIN SODIUM,PORCINE 5,000 UNITS/ML VIAL SQ SCH ×3 (00:03→15:34)
[2021-06-11] MEDS: ACETAMINOPHEN 325 MG TABLET PO PRN (00:03)
[2021-06-11] MEDS: IPRATROPIUM BROMIDE 0.5 MG/2.5 ML NEB SOLUTION NEB SCH ×4 (01:13→19:42)
[2021-06-11] MEDS: ALBUTEROL SULFATE 2.5 MG/0.5 ML NEB SOLUTION NEB SCH ×4 (01:13→19:42)
[2021-06-11 05:55] VITALS: BP 101/59
[2021-06-11] MEDS: MethylPREDNISolone SOD SUCC 125 MG/2 ML VIAL IVP SCH ×3 (06:07→11:06)
[2021-06-11 07:07] LABS: CALCIUM, TOTAL 8.5 mg/dL (8.8-10.5); CREATININE 1.5 mg/dL (0.60-1.30); POTASSIUM 3.6 mmol/L (3.5-5.1)
[2021-06-11 07:55] VITALS: BP 100/57
[2021-06-11] MEDS: BENZONATATE 100 MG CAPSULE PO SCH ×3 (08:59→21:03)
[2021-06-11] MEDS: FAMOTIDINE 20 MG TABLET PO SCH (08:59)
[2021-06-11] MEDS: DOCUSATE SODIUM 100 MG CAPSULE PO SCH ×2 (08:59→21:02)
[2021-06-11] MEDS: GuaiFENesin SR 600 MG ER TABLET PO SCH ×2 (08:59→21:02)
[2021-06-11] MEDS ORDERED: LOSARTAN POTASSIUM 25 MG TABLET PO SCH (09:00)
[2021-06-11] MEDS: FUROSEMIDE 40 MG TABLET PO SCH (09:03)
[2021-06-11] MEDS: CARVEDILOL 3.125 MG TABLET PO SCH ×2 (09:16→21:02)
[2021-06-11] MEDS: CefTRIAXone 1 GM/DEXTROSE 50 ML IV SCH (10:18)
[2021-06-11 11:40] VITALS: BP 103/67
[2021-06-11 16:03] VITALS: BP 95/58
[2021-06-11 20:30] VITALS: BP 131/50
[2021-06-11] MEDS ORDERED: MethylPREDNISolone SOD SUCC 40 MG/ML VIAL IVP SCH (21:00)
[2021-06-11] MEDS: ASPIRIN 81 MG CHEWABLE TABLET PO SCH (21:01)
[2021-06-12] MEDS: HEPARIN SODIUM,PORCINE 5,000 UNITS/ML VIAL SQ SCH ×2 (00:09→08:54)
[2021-06-12 00:10] VITALS: BP 112/70
[2021-06-12] MEDS: ALBUTEROL SULFATE 2.5 MG/0.5 ML NEB SOLUTION NEB SCH ×3 (02:00→14:00)
[2021-06-12] MEDS: IPRATROPIUM BROMIDE 0.5 MG/2.5 ML NEB SOLUTION NEB SCH ×3 (02:00→14:00)
[2021-06-12] MEDS: ACETAMINOPHEN 325 MG TABLET PO PRN (02:33)
[2021-06-12 04:35] VITALS: BP 123/69
[2021-06-12 05:16] LABS: GLUCOMETER DEV NAME(LOC) 5S.1B; GLUCOSE,POINT OF CARE 176 MG/DL (70-110)
[2021-06-12] MEDS: FUROSEMIDE 40 MG TABLET PO SCH (08:52)
[2021-06-12] MEDS: GuaiFENesin SR 600 MG ER TABLET PO SCH (08:52)
[2021-06-12] MEDS: BENZONATATE 100 MG CAPSULE PO SCH (08:52)
[2021-06-12] MEDS: DOCUSATE SODIUM 100 MG CAPSULE PO SCH (08:53)
[2021-06-12] MEDS: CARVEDILOL 3.125 MG TABLET PO SCH (08:53)
[2021-06-12] MEDS: FAMOTIDINE 20 MG TABLET PO SCH (08:53)
[2021-06-12] MEDS ORDERED: LOSARTAN POTASSIUM 25 MG TABLET PO SCH (09:00)
[2021-06-12] MEDS ORDERED: PredniSONE 20 MG TABLET PO SCH (09:00)
[2021-06-12 10:01] VITALS: BP 120/75
[2021-06-12] MEDS: CefTRIAXone 1 GM/DEXTROSE 50 ML IV SCH (11:22)
[2021-06-12] MEDS ORDERED: PRED20 PO (12:25)
[2021-06-12] MEDS ORDERED: CARV3 PO (12:25)
[2021-06-12] MEDS ORDERED: ASPI81 PO (12:25)
[2021-06-12] MEDS ORDERED: LOSA25TA2 PO (12:25)
[2021-06-12] MEDS ORDERED: FURO40 PO (12:25)
[2021-06-12 13:36] VITALS: BP 104/71
[2021-06-18] MEDS ORDERED: SPIR-37 PO (23:05)
[2021-06-18] MEDS ORDERED: PANT-31 PO (23:05)
[2021-06-18] MEDS ORDERED: VALS40TA11 PO (23:05)
[2021-06-18] MEDS ORDERED: METF-1211 PO (23:05)
[2021-06-22] MEDS ORDERED: CARV3 PO (09:34)
[2021-06-22] MEDS ORDERED: METR500 PO (09:34)
[2021-06-22] MEDS ORDERED: CIPR-278 PO (09:34)
[2021-06-22] MEDS ORDERED: ASPI81 PO (09:34)
[2021-06-22] MEDS ORDERED: FURO40 PO (09:34)
== END 2021-06-12 15:40 | disposition home or self-care (01) | DRG 194 ==
LOC: EMS 18:58 → 5N 23:00
PROVIDERS: ADMIT Internal Medicine; ATTEND Internal Medicine
DX: I11.0 Hypertensive heart disease with heart failure (principal); J96.00 Acute respiratory failure, unspecified whether with hypoxia or hypercapnia; J44.1 Chronic obstructive pulmonary disease with (acute) exacerbation; I50.23 Acute on chronic systolic (congestive) heart failure; I42.8 Other cardiomyopathies; F15.90 Other stimulant use, unspecified, uncomplicated; D64.9 Anemia, unspecified; I08.1 Rheumatic disorders of both mitral and tricuspid valves; Z87.891 Personal history of nicotine dependence; Z82.49 Family history of ischemic heart disease and other diseases of the circulatory system; Z91.19 Patient's noncompliance with other medical treatment and regimen; Z95.810 Presence of automatic (implantable) cardiac defibrillator; Z23 Encounter for immunization; Z79.82 Long term (current) use of aspirin; Z79.899 Other long term (current) drug therapy; Z91.14 Patient's other noncompliance with medication regimen
CPT/HCPCS: 71046; 74176; 80048; 80053; 82962; 83690; 83880; 84484; 85025; 87081; 90686; 93005; 93306; 94640; 99285; G0480; J0696; J1644; J1940; J2270; J2920; J2930; J7050; 36415-L1; 36415-TC; G0008; J7613